=== PATIENT | male | born 1945 | race Caucasian/White ===

== ENCOUNTER → 2020-02-10 06:16 | Outpatient (CLI) | payer MEDICARE, OTHER, SELFPAY ==
--- NOTE | 2020-02-10 06:36 | MRI_ITS ---
STUDY: MRI RIGHT ELBOW REASON FOR EXAM: Aching in right arm since 02/02/2020, attention distal biceps tendon. TECHNIQUE: Standardized fat and water weighted pulse sequences were obtained in all 3 orthogonal planes. COMPARISON: None. FINDINGS: Normal radio-capitellum articulation. Normal radial collateral ligamentous complex. There is an undersurface partial tear of the common extensor tendon (inversion recovery coronal images 10-12) and peritendinitis of the common extensor tendon (inversion recovery coronal image 12). Normal ulnotrochlear articulation. Normal ulnar collateral ligamentous complex. There is a low-grade undersurface partial tear of the common flexor tendon (inversion recovery coronal image 15). The cubital tunnel is normal, with a normal ulnar nerve. There is mild tendinosis of the distal biceps tendon and a low-grade partial tear of the distal biceps tendon near the radial tuberosity insertion (inversion recovery coronal image 8; T2 axial image 4). Normal lacertus fibrosis. Normal brachialis musculotendinous insertion. Normal triceps tendon and teno-osseous insertion. Normal olecranon process. The visualized distal humerus, proximal radius, and ulna are normal. The visualized muscles of the distal arm and proximal forearm are normal. There is mild edema in the ulnar posterior subcutis adipose space. MRI/Upper Ext Joint Only(Routine) IMPRESSION: Low-grade partial tear and mild tendinosis of the distal biceps tendon. Undersurface partial tear and peritendinitis of the common extensor tendon. Low-grade undersurface partial tear of the common flexor tendon. Electronically Signed: Len Beckett MD at 7:48 EDT Tel , Service support ,
== END ==
PROVIDERS: PCP Physician Assistant; Referring Provider Physician Assistant; Visit Provider Physician Assistant
DX: S46.111A Strain of muscle, fascia and tendon of long head of biceps, right arm, initial encounter (principal)
CPT/HCPCS: 73221

== ENCOUNTER 2020-03-12 10:30 | Outpatient (RCR) | payer MEDICARE, OTHER, SELFPAY ==
--- NOTE | 2020-02-19 09:58 | HP.PTEVAL_ITS ---
Patient's Visit Information MARCI WONG is a 74 year old M referred to Physical Therapy by Yosi Alaniz PA-C with a diagnosis of long head biceps strain of R arm. Date of Evaluation: 02/19/20 Physical Therapist: Pepito Espinoza DPT - Visit Plan Frequency: 2x /Week Duration: 4-6 Weeks Plan: Start with DFM to biceps muscle belly R side, elbow extension stretcing (as tolerated, not forceful). RTC stability exercses. Add in slow progression of biceps loading as tolerated. Focus on increasing reps prior to heavy loads. Have patient slowly progressing swing golf club both from light chipping to in a few weeks full swinging as tolerated. Do not progress too fast if painful. - Subjective Pt. is here today for his initial evaluation with diagnosis of long head biceps strain of R arm. Pt. reports hurting his arm ~2-3 weeks ago while working on his deck and picking up some decking materials. Pt. reports no initial pain and was able to go golfing later that date, but did have some pain later that night. the neck day he had a large amout of bruising of distal biceps region into his olecranon fossa region. Pt. saw his doctor who told him he had a possible distal biceps tear, but minor. Pt. is an avid golfer ~4-5 days per week. He has held off since his initial injury, but has started putting and ligth chipping recently. pt. reports overall now his pain is minmal, but is hesitent to trial more aggressive activities. Increases symptoms: not much any more, does get sore cramps in the evening. Decreases symptoms: ice and rest. No swelling, no bruising noted. Pt. is hopeful to reduce symptoms in order to get back to all golfing without increase in symptoms. - Pain R distal biceps pain Pain Intensity (Out of 10): 1 Pain Intensity Range: 0, 3 - Objective POSTURE: Pt. has FH posture with rounded shoulders and protracted scapulea bilaterally. Normal distal UE posture. PALPATION: Pt. has no bruising, but does have increased tissue mass of his R bicep muscle belly. Pt. has some mild tenderness at biceps muscle belly and distal biceps tendon. NEURO: normal sensation and normal DTR of BUEs. ROM: RUE- wrist full ROM, elbow- full ROM including full sup/pro (mild increase insymptoms with over pressure into sup); shoulder: flexion 175deg NE, abd 170deg NE, functional ER C6 NE, functional IR L1 NE. MMT: shoulder- 5-/5 throughout NE; elbow- ext 5/5 NE, flexion 4/5 mild incrase NW; shoulder- flexion 4+/5, abd 4+/5, ER 4/5, IR 5/5. - Special Tests R Shoulder Empty Can - SS: Negative R Shoulder Biceps Load Test - Labrum: Negative R Shoulder Speeds Test - Labrum/Biceps: Negative R Elbow Valgus Stress Test - MCL Instability: Negative R Elbow Varus Stress Stest - MCL Instability: Negative R Elbow Biceps Squeeze - Rupture Biceps: Negative - Goals Goal 1:: LTG: Pt. to be I with HEP. Goal Time Frame: 4-6 Weeks Goal 2:: STG: pt. to sleep throughout the night without increase in symptoms. Goal Time Frame: 2 Weeks Goal 3:: STG: Pt. to maintain full R elbow extension. Goal Time Frame: 2-4 Weeks Goal 4:: LTG: Pt. to have increased R shoulder ER and biceps strength by 1/2 grade without increase in symptoms. Goal Time Frame: 4-6 Weeks Goal 5:: LTG: Pt. to resume all golfing without increase in symptoms. Goal Time Frame: 4-6 Weeks - Rehabilitation Potential Physical Therapy Diagnosis: Pt. presents with signs and symptoms consistent with biceps injury, distally. Pt. has Rehabilitation Potential: Excellent - Anticipated Interventions Patient/Client Instruction: Educate patient on: Condition, Plan of Care, Risk Factors, Benefits of Fitness Program For the Purpose of:: To facilitate caregiver knowledge, To improve self management, To prevent re-injury, To improve ability to perform tasks related to life management, To improve tolerance to ADL's Therapeutic Exercise to Include: Strength training, Power training, Endurance training, Postural training, Flexibilty training, Active ROM, Scapular Strength/Stabilization For the Purpose of:: To decrease pain, To decrease swelling/inflammation, To increase ROM, To improve nutrient delivery to tissue, To increase oxygenation perfusion, To improve muscle performance and motor function, To improve ability to perform ADL's, To improve health of tissue, To decrease soft tissue restriction, To increase flexibility/ROM Manual Therapy Techniques to Include: Soft tissue mobilization For the Purpose of:: To decrease pain, To decrease swelling/inflammation, To increase ROM Thank you for the opportunity to evaluate your patient. For Medicare and Medicare HMO plans, please review the plan of care and approve it. It will need to be FAXED BACK to us at [phone] for Medicare purposes. For Medicare only, by signing this I certify the plan of care. Please let me know if there are questions or concerns regarding this plan of care. Physician Signature: Date:
--- NOTE | 2020-03-15 11:31 | HP.PTREVAL ---
Yosi Alaniz PA-C, It has been my pleasure to treat MARCI WONG over the last 7 visits for long head biceps strain of R arm. Please see the progress note below for an update on the physical therapy plan of care! Subjective: Pt. reports overall doing well. He is back to playing golf but hitting at 75% of his swing. Pt. reports no pain. Pt. reports beign 90% better overall. HEP compliant. Objective/Function: Pt. has good ROM of both R shoulder and elbow. No pain with testing. Pt. does have marked weakness in his ER of his shoulder without marked pain. Pt. has good biceps strengthen. He is back to playing golf and is slowly increasing to full swing, ~75% of swing velocity currently (self reported). Pt. has not had any increased pain with this so far. Plan Plan: Pt. to b continue on own for the next few weeks and and follow up with physician in a few weeks. Pt. to follow up with PT if needed. If I do no hear from him in the next few weeks I will DC from PT at this point in time. Goals Goal 1:: LTG: Pt. to be I with HEP. Goal Time Frame: 4-6 Weeks Goal Progress: Goal Met Goal 2:: STG: pt. to sleep throughout the night without increase in symptoms. Goal Time Frame: 2 Weeks Goal Progress: Goal Met Goal 3:: STG: Pt. to maintain full R elbow extension. Goal Time Frame: 2-4 Weeks Goal Progress: Goal Met Goal 4:: LTG: Pt. to have increased R shoulder ER and biceps strength by 1/2 grade without increase in symptoms. Goal Time Frame: 4-6 Weeks Goal Progress: Goal Met Goal 5:: LTG: Pt. to resume all golfing without increase in symptoms. Goal Time Frame: 4-6 Weeks Goal Progress: Goal Met Anticipated Interventions Patient/Client Instruction: Educate patient on: Condition, Plan of Care, Risk Factors, Benefits of Fitness Program For the Purpose of:: To facilitate caregiver knowledge, To improve self management, To prevent re-injury, To improve ability to perform tasks related to life management, To improve tolerance to ADL's Therapeutic Exercise to Include: Strength training, Power training, Endurance training, Postural training, Flexibilty training, Active ROM, Scapular Strength/Stabilization For the Purpose of:: To decrease pain, To decrease swelling/inflammation, To increase ROM, To improve nutrient delivery to tissue, To increase oxygenation perfusion, To improve muscle performance and motor function, To improve ability to perform ADL's, To improve health of tissue, To decrease soft tissue restriction, To increase flexibility/ROM Manual Therapy Techniques to Include: Soft tissue mobilization For the Purpose of:: To decrease pain, To decrease swelling/inflammation, To increase ROM Please do not hesitate to contact me at [phone] by phone or if you have questions or concerns regarding this new plan of care! Sincerely, NATHANAEL AguayoT
== END 2020-03-12 19:00 | disposition home or self-care (01) ==
LOC: PT 10:30
PROVIDERS: PCP Physician Assistant; Visit Provider Physician Assistant
DX: S46.111D Strain of muscle, fascia and tendon of long head of biceps, right arm, subsequent encounter (principal)
CPT/HCPCS: 97110; 97161; 97164

== ENCOUNTER → 2021-12-22 | Outpatient (CLI) | payer MEDICARE, OTHER, SELFPAY | END | disposition home or self-care (01) | PROVIDERS: PCP Physician Assistant; Visit Provider Podiatrist | DX: L97.512 Non-pressure chronic ulcer of other part of right foot with fat layer exposed (principal) | CPT/HCPCS: 87070; 87075; 87077; 87186; 87205 ==

== ENCOUNTER → 2022-03-13 | Outpatient (CLI) | payer MEDICARE, OTHER, SELFPAY ==
--- NOTE | 2022-03-13 09:45 | ART_ITS ---
Reason For Study: PVD Procedure A bilateral lower extremity continuous wave Doppler with analog waveform analysis,segmental pressures,and ankle brachial indexes without exercise. Left Segmental Pressures Left brachial= 123mmHg. Left posterior tibial artery = >254mmHg. Left dorsalis pedis artery = >254mmHg. Left digit = 104 mmHg. Right Segmental Pressures Right brachial= 121mmHg. Right posterior tibial artery = >254mmHg. Right dorsalis pedis artery = >254mmHg. Right digit = 108 mmHg. Indices The right ankle brachial index by the posterior tibial artery is NC. The right ankle brachial index by the dorsalis pedis is NC. The right digital-brachial index is 0.88. The left ankle brachial index by the posterior tibial artery is NC. The left ankle brachial index by the dorsalis pedis is NC. The left digital-brachial index is 0.85. VL/Lower Ext Art Exam w/o Exercis Interpretation Summary Triphasic Doppler waveforms are noted at ankle level bilaterally. Pulse-volume recordings appear diminished at digital level on the left, but satisfactory at all other levels b ilaterally. Resting ankle-brachial indices could not be determined on either side due to the non-co mpressibility of the vasculature at ankle level bilaterally. Digital-brachial indices are normal valdemar aterally. There is evidence of arterial calcification at ankle level bilaterally. There i s no evidence of significant arterial occlusive disease in the lower extremities bilaterally. Ordering Physician: Aidan Bishop Referring Physician: Dc Herrera Performed By: Mercy Garcia RDCS/RVT
== END | disposition home or self-care (01) ==
LOC: CVS 09:39
PROVIDERS: PCP Family Medicine; Referring Provider Podiatrist; Visit Provider Podiatrist
DX: I73.9 Peripheral vascular disease, unspecified (principal)
CPT/HCPCS: 93923

== ENCOUNTER → 2022-03-28 | Outpatient (CLI) | payer MEDICARE, OTHER, SELFPAY ==
[2022-03-28 17:33] LABS: Absolute Lymphocyte Count 1.78 X10^3/uL (0.83-4.51); Absolute Neutrophil Count 4.5 X10^3/uL (2.0-7.7); Basophil# 0.05 X10^3/uL; Basophil% 0.7 % (0-1); Eosinophil# 0.12 X10^3/uL; Eosinophils% 1.7 % (0-5); Hematocrit 37.6 % (40-54); Hemoglobin 12.9 g/dL (13.0-16.5); Lymphocyte # 1.78 X10^3/ul (0.83-4.51); Lymphocyte % 25.2 % (19-41); Mean Corp Hgb Conc 34.3 g/dL (32-36); Mean Corpuscular Hgb 35.5 pg (27.0-32.0); Mean Corpuscular Volume 103.6 fL (80-94); Mean Platelet Vol. 10.2 fl (6.2-12.0); Monocyte# 0.64 X10^3/uL; Monocyte% 9.1 % (0-10); NRBC Flagged by Analyzer 0 % (0-5); Neutrophil # 4.45 X10^3/uL (2.7-7.7); Platelet Count 258 K/mm3 (150-450); RBC Distribution Width CV 12.7 % (11.6-14.6); RBC Distribution Width SD 47.7 fl (35.1-43.9); Red Blood Count 3.63 M/mm3 (4.6-6.2); White Blood Count 7.1 K/mm3 (4.4-11.0)
[2022-03-28 17:52] LABS: ALB/GLOB Ratio 1.1 RATIO (0.9-2.4); AST(SGOT) 27 U/L (15-37); Alanine Aminotransfer ALT/SGPT 25 U/L (16-61); Albumin, Serum 3.7 g/dL (3.2-5.0); Alkaline Phosphatase 43 U/L (45-117); Anion Gap 8 (5-15); BUN 20 mg/dL (7-18); BUN/Creat Ratio 18.2 RATIO (10-20); Calcium,Total 9.6 mg/dL (8.5-10.1); Chloride 102 mmol/L (98-107); EST Glomerular Filtration Rate 69 mL/min (>60); Est Glom Filt Rate - Afr Amer 84 mL/min (>60); Globulin 3.3 g/dL (2.2-4.2); Glucose 105 mg/dL (74-106); Potassium 3.9 mmol/L (3.5-5.1); Sodium Level 137 mmol/L (136-145)
== END | disposition home or self-care (01) ==
LOC: MFPLAB 14:26
PROVIDERS: PCP Family Medicine; Referring Provider Family Medicine; Visit Provider Family Medicine
DX: Z01.818 Encounter for other preprocedural examination (principal)
CPT/HCPCS: 36415; 80053; 85025

== ENCOUNTER 2022-04-14 05:50 | Day surgery (SDC) | payer MEDICARE, OTHER, SELFPAY ==
[2022-04-14] VITALS (7 sets, daily range): BP systolic 130–166; BP diastolic 82–98; PULSE 51–79; RESP 16; TEMP 36.3–37.1; O2SAT 94–100; BMI 24.7
--- NOTE | 2022-04-14 | BONBX_PTH ---
PATIENT: MARCI WONG LOC: [facility] – [place] U#:[id number] AGE/SX: 76/M ROOM: RE04/14/[address]: Dr. Aidan Bishop DPM : [id number] BED: DIS: 04/14/2022 SPEC #: [id number] RECD: 04/14/22 13:57 STATUS: SARATH RENadja #: [id number] LUIS ANTONIO: 04/14/22 00:[address]: Aidan Bishop DEPT: SURGICAL PATHOLOGY RECD BY: Ezequiel Nelson ENTERED: 04/17/22 10:03 SP TYPE: Bone OTHR DR: Dr. Kenzie Alexander MD Tissues: Bone of foot, NOS Procedures: Decalcification bone/plaque Surgery Specimen Level III HEADER OPERATION: MPJ fusion with hammertoe repair PRE-OP DIAGNOSIS: Hallux valgus, hallux rigidus, hammertoe TISSUE SUBMITTED: Second digit proximal phalangeal head, right foot MICROSCOPIC DIAGNOSIS Second digit proximal phalangeal head, right foot: A piece of bone with degenerative and reactive changes, clinically hammertoe. MALORIE:keyanna 04/19/2022 MICROSCOPIC DESCRIPTION Slides are reviewed. GROSS DESCRIPTION Received in fixative is one container labeled with the patient's name and designated second digit proximal phalangeal head, right foot. The specimen consists of a piece of bone measuring 1 x 0.7 x 0.7 cm. The entire specimen is submitted in one cassette after decalcification. / MALORIE:keyanna 04/17/2022 TC:5 CPT: 32865, 46171
[2022-04-14] MEDS: Lactated Ringers 1,000 ML 15 ML IV (06:31)
--- NOTE | 2022-04-14 07:30 | RAD_ITS ---
HISTORY: 1st MPJ Fusion, hammer toe repair. TECHNIQUE: 7 spot images. COMPARISON: None. FINDINGS: BONES : Instrument at the first metatarsophalangeal joint. Fusion hardware noted on subsequent images. K wire traversing the second metatarsophalangeal and interphalangeal joints. FLUOROSCOPY TIME: 57 seconds. RADIATION DOSE: 0.44 mGy. RAD/Toe(s) Min 2 Views IMPRESSION: Fluoroscopic guidance for right foot ORIF. Please refer to procedure note. Electronically Signed: Latasha Patiño MD at 15:23 EDT ,
[2022-04-14] MEDS: Cefazolin 2 GM in 0.9% Normal Saline 100 ML IV (07:36)
[2022-04-14] MEDS: Bacitracin 500 UNITS/GM PACKET (09:59)
--- NOTE | 2022-04-14 10:16 | PCM.OPRPT ---
Problems Associated Problem List Diagnoses (1) Hallux rigidus of right foot: (2) Hammertoe of right foot: Report of Operation Date of Procedure: 04/14/22 Pre-Operative Diagnosis: 1) right foot hallux rigidus 2) right foot second digit hammertoe Post-Operative Diagnosis: Same Surgery/Procedure Performed:: 1) right first metatarsal phalangeal joint arthrodesis 2) right second digit hammertoe repair via PIPJ arthroplasty with flexor tenotomy Description of Surgical Findings:: Great reduction of hallux valgus and hallux rigidus deformity to the right foot post surgical correction with dorsal plating and first metatarsal phalangeal joint fusion as well as rectus alignment of the right second digit and ball frontal sagittal and coronal and transverse planes. Surgeon: Aidan Bishop manager eligibility: None (milad LINDA pgyII) Type of Anesthesia: MAC Special Medications: 30 cc quarter percent Marcaine plain Specimen's removed: Proximal phalangeal head right second digit Estimated Blood Loss (mL): 50 cc Description of Procedure: Patient has chronic hallux valgus deformity with hallux rigidus formation to the first metatarsal phalangeal joint. This is been a chronic issue for the patient and patient has attempted multiple shoe gear changes with inserts. Patient has failed this over his lifetime. He noticed a new hammertoe contracture that which is developed over the past couple of years. Recently he has developed a wound to his distal interphalangeal joint of the second toe secondary from rubbing of this lateral aspect of his hallux up against that second digit with both being rigid contractures this would not heal adequately. Due to this chronic wound at this point as well as pain full digital deformities patient wished to proceed with operative management. Patient brought back the operating placed comfortably in the supine position. Patient due to under MAC anesthesia. Right lower extremity was bumped with a hip bump. Well-padded right ankle tourniquet applied. Right lower extremity was scrubbed prepped and draped using typical aseptic manner. Preoperatively 20 cc were used to perform a Young block and a right second digit block additional 10 cc was performed at the end of the case for a total of 30 cc of quarter percent Marcaine plain. Once cleared by anesthesia a dorsal medial incision was drawn just dorsal to the first metatarsal phalangeal joint. This incision was made through the level of epidermis dermis into subcutaneous tissue blunt dissection was taken to the level of deep fascia and capsule. Any bleeders were identified cauterized at this time. All other important neurovascular structures were protected with blunt retraction. Dorsal capsulotomy was performed in a linear fashion just medial to the extensor hallucis longus tendon. The capsule was dissected off of the first metatarsal head and proximal phalangeal base exposing the first metatarsal phalangeal joint both dorsally medially and laterally as well as plantar medially. This allowed adequate exposure of the first metatarsal head and proximal phalangeal base. There is noted that there is greater than 50% articular cartilage loss with dorsal osteophyte formation along the dorsal medial aspect of the first metatarsal head and proximal phalangeal base. There is also noted to be a bone cyst along the dorsal aspect of the first metatarsal head which would require DBM application to fill the deficit. n the joint was prepped using reamers using standard technique per commercial loan reviewer's guidelines once all denuded cartilage was removed the site was flushed with copious amounts normal sterile saline any additional osteophytes were removed using a sagittal saw. Subcu chondral drilling was performed with a 2 oh drill bit to the first metatarsal head and proximal phalangeal base. The digital deformity was reduced and with regards to frontal sagittal and coronal and transverse planes. With pinned in this position from a distal medial to proximal lateral aspect with a percutaneous pin across the first metatarsal phalangeal joint a dorsal plate was then applied and confirmed using fluoroscopic imaging confirming digital reduction as well as adequate plate placement this plate was locked down distally with 3 locking screws using manufactures guidelines and next BB tack was maintained to the proximal aspect of the plate which the compression mechanism was used for this Arthrex max force compression plate a drill hole was placed and the compression mechanism was inserted and used until 2 finger tightness and adequate compression was noted across first metatarsophalangeal joint was then retained in this reduced state with a threaded BB tack. Fluoroscopically and clinically it was noted to be reduced and the plate was in good position. A cortical screw was placed in the central hole. Next 2 locking screws were placed in the more distal and more proximal holes just proximal to the first marginal first metatarsophalangeal joint using manufactures guidelines. The site was flushed with copious amounts of normal sterile saline and capsular closure was performed with 4-0 Vicryl in a running interlocking stitch and then subcutaneous closure with 4 oh simple interrupted technique. Skin closure performed with running intradermal subcuticular stitch. Next attention was taken to the second digit where a linear incision was made just dorsal to the PIPJ and MPJ is made through the epidermis dermis into subcutaneous tissue with a 15 blade all bleeders identified neurovascular structures were bluntly infected. PIPJ was identified and transverse capsulotomy was performed in the medial and lateral aspects of the proximal phalangeal head were released and the extensor tendon was dissected off the proximal phalanx down to the level of the metatarsal phalangeal joint the metatarsal phalangeal joint was released dorsally and that noted improvement in sagittal contracture. The proximal phalangeal head was then excised using bone cutters and sent to pathology for further examination. At this time there is still some contracture that was predominantly secondary to the pole of the flexor tendons flexor tendons were then tendon tenotomized using Littler scissors. Adequate reduction was noted at this time and went through retrograde pinning a percutaneous pin was placed across the entire digit into the proximal phalangeal joint with the toe reduced with regards to the frontal sagittal and transverse planes. This confirmed intraoperatively by visualization as well as fluoroscopic imaging. Site was flushed with copious manuel normal sterile saline closed with subcutaneous closure to repair the extensor tendon back with a interlocking 4-0 Vicryl stitch and then subcutaneous closure was performed with simple interrupted buried technique stitch. Running intradermal subcuticular closure was performed with 4-0 Monocryl tourniquet was let down prior to incisional closure on the side. Tourniquet time was noted to be less than 90 minutes. Incision sites were then dressed with Steri-Strips bacitracin Adaptic 4 x 4's Kerlix and a well-padded posterior splint. Patient tolerated procedure and anesthesia well in apparent satisfactory condition to be transferred to PACU with vital signs and vascular status intact all digits for further monitoring.. Patient will be discharged home with crutches. Patient will follow up in 1 week. No complication Proximal phalangeal head right second digit only pathologic specimen
== END 2022-04-14 12:10 | disposition home or self-care (01) ==
LOC: SDC 05:51 → AC 05:52
PROVIDERS: PCP Family Medicine; Referring Provider Podiatrist; Visit Provider Podiatrist
PROC: (CPT 28750; principal; 2022-04-14 07:15)
DX: M20.41 Other hammer toe(s) (acquired), right foot (principal); M20.10 Hallux valgus (acquired), unspecified foot; Z79.899 Other long term (current) drug therapy; I10 Essential (primary) hypertension; M10.9 Gout, unspecified
CPT/HCPCS: 28750; 01480; 28285; 73660; 76000; 88304; 88311; C1713; J7120; J2405

== ENCOUNTER → 2022-06-16 | Outpatient (CLI) | payer MEDICARE, OTHER, SELFPAY ==
--- NOTE | 2022-06-16 16:19 | CT_ITS ---
INDICATION: R FOOT PAIN IN TOES EXAMINATION: CT BONE - CT Lower Extremity W/O Contrast Injection TECHNIQUE: Helically acquired images were obtained of the right foot. 2-D reformats were performed by the technologist. A radiation dose optimization technique was used for this scan. IV Contrast dosage and agent: None. COMPARISON: None. FINDINGS: SOFT TISSUES: Soft tissue edema medial to the first MTP joint. No gas formations.. No radiopaque foreign body. Vascular calcifications present. Fixation hardware at the dorsum of the first MTP joint. Hardware intact and appears well-seated. BONES/JOINTS: No acute fracture. Degenerative changes of the first MTP joint. Remaining joint spaces. No sclerotic or destructive changes. CT/Extremity Lower without Contra IMPRESSION: Surgical changes from surgical fusion with hardware first MTP joint. No acute or destructive bony abnormality.. Electronically Signed: Ben Varela MD at 16:51 EST ,
== END | disposition home or self-care (01) ==
LOC: CT 16:18
PROVIDERS: PCP Family Medicine; Referring Provider Podiatrist; Visit Provider Podiatrist
DX: M79.674 Pain in right toe(s) (principal)
CPT/HCPCS: 73700

== ENCOUNTER → 2022-08-03 | Outpatient (CLI) | payer MEDICARE, OTHER, SELFPAY ==
--- NOTE | 2022-08-03 08:14 | CT_ITS ---
EXAM: CT RIGHT LOWER EXTREMITY WITHOUT INTRAVENOUS CONTRAST CLINICAL INDICATION: VARUS DEFORMITY/PRE OP TECHNIQUE: Helically acquired images were obtained of the right lower extremity without intravenous contrast. 2-D reformats were performed by the technologist. CTDIvol = ( 18.76 ) mGy, DLP = ( 1168.50 ) mGycm This CT exam was performed using one or more of the following dose reduction techniques: automated exposure control, adjustment of the mA and/or kV according to patient size, and/or use of iterative reconstruction technique. This report was created using [employer] report CPM [employer] technology. COMPARISON: None. 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 Focal insufficiency fracture suspected at the middle weightbearing portion of the medial femoral condyle measuring 1.1 cm in medial collateral dimension with minimal cortical depression. Evidence of old injury involving the medial malleolus. Nonfused os trigonum. Soft tissues: Small focus gas at the lateral femorotibial compartment. Prominent prepatellar soft tissue edema and fluid, nonorganized. Peripheral vascular calcifications at the level of the ankle/distal lower extremity. CT/Extremity Lower without Contra IMPRESSION: 1. Preoperative planning study. 2. Focal insufficiency fracture suspected at the middle weightbearing portion of the medial femoral condyle measuring 1.1 cm in medial collateral dimension with minimal cortical depression. 3. 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 Electronically Signed: David Corona MD at 22:26 EST ,
--- NOTE | 2022-08-03 08:40 | EKG12_ITS ---
Test Reason : PRE OP Blood Pressure : / mmHG Vent. Rate : 089 BPM Atrial Rate : 089 BPM P-R Int : 156 ms QRS Dur : 088 ms QT Int : 366 ms P-R-T Axes : 043 -23 053 degrees QTc Int : 445 ms Normal sinus rhythm Normal ECG Confirmed by CHRISTOPHER PRIETO, JAIDA ([id number]), graphic editor GAETANO MITCHELL ([id number]) on 08/04/2022 9:01:56 AM Referred By: Jerry Easton Confirmed By:THONY WHITE MD
[2022-08-03 10:03] LABS: Basophil# 0.05 X10^3/uL; Basophil% 0.6 % (0-1); Eosinophil# 0.12 X10^3/uL; Eosinophils% 1.5 % (0-5); Hematocrit 38.5 % (40-54); Hemoglobin 13.1 g/dL (13.0-16.5); Lymphocyte % 18.2 % (19-41); Mean Corpuscular Hgb 34.6 pg (27.0-32.0); Mean Corpuscular Volume 101.6 fL (80-94); Mean Platelet Vol. 9.7 fl (6.2-12.0); Monocyte# 0.56 X10^3/uL; Monocyte% 6.8 % (0-10); NRBC Flagged by Analyzer 0 % (0-5); Neutrophil # 5.99 X10^3/uL (2.7-7.7); Neutrophil % 72.7 % (47-70); Platelet Count 247 K/mm3 (150-450); RBC Distribution Width CV 13.6 % (11.6-14.6); RBC Distribution Width SD 50.4 fl (35.1-43.9); Red Blood Count 3.79 M/mm3 (4.6-6.2); White Blood Count 8.2 K/mm3 (4.4-11.0)
[2022-08-03 10:39] LABS: Albumin, Serum 3.9 g/dL (3.2-5.0); Anion Gap 10 (5-15); BUN 24 mg/dL (7-18); BUN/Creat Ratio 23.3 RATIO (10-20); Calcium,Total 9.6 mg/dL (8.5-10.1); Chloride 103 mmol/L (98-107); Creatinine, Serum 1.03 mg/dL (0.70-1.30); EST Glomerular Filtration Rate 75 mL/min (>60); Est Glom Filt Rate - Afr Amer 90 mL/min (>60); Glucose 114 mg/dL (74-106); Potassium 4.4 mmol/L (3.5-5.1); Sodium Level 140 mmol/L (136-145)
[2022-08-03 10:42] LABS: Hemoglobin A1c 5.1 % (3.8-5.6)
== END | disposition home or self-care (01) ==
PROVIDERS: PCP Family Medicine; Referring Provider Physician Assistant Surgical; Visit Provider Physician Assistant Surgical
DX: Z01.818 Encounter for other preprocedural examination (principal); M21.161 Varus deformity, not elsewhere classified, right knee; Z79.899 Other long term (current) drug therapy
CPT/HCPCS: 36415; 73700; 80048; 82040; 83036; 85025; 93005

== ENCOUNTER 2022-09-18 10:30 | Outpatient (RCR) | payer MEDICARE, OTHER, SELFPAY ==
--- NOTE | 2022-08-21 12:48 | HP.PTEVAL_ITS ---
Patient's Visit Information MARCI WONG is a 76 year old M referred to Physical Therapy by Lobo Easton PA-C with a diagnosis of R partial knee arthroplasty. Date of Evaluation: 08/21/22 Physical Therapist: Pepito Espinoza DPT - Visit Plan Frequency: 3x /Week Duration: 6 Weeks Plan: Start with ROM of R knee, progressing to strengthening. Add in some gait instruction. May use ice and/or vaso for edema. Pt. wants to eventually progress back to gym exercises.*Be aware patient had a bunionectomy and wanted to avoid raising up on toes.* - Subjective Pt. is here today for his initial evaluation with R partial knee arthroplasty. D OS: 08/18/22. Pt. arrives without AD. Pt. reports overall minimal pain, but is taking his sol medication. Pt. denies calf pain, no NT, no visual changes and no HAs. Pt. has been doing his exercises as prescribed, but had to hold of on Sunday due to having some increased pain Sat night. Pt. has been walking at home with good tolerance. Pt. did have a bunionectomy late last year. Pt. is overall pleased with his tolerance with his knee thus far. Pt. is sleeping okay. He is back to taking his pain meds, he held off on Sunday. Pt. reports no drainage, knee is still bandaged. Pt. has minimal heat and minmal swelling noted. 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 He reports golfing x5 days per week in spring and summer. - Pain R medial knee Pain Intensity (Out of 10): 2 Pain Intensity Range: 0, 5 - Objective POSTURE: Pt. has decent posture in stance. Slight wt. shift to L side. Lacks TKE on R LE in stance. PALPATION: Pt. has tenderness along knee, but no major issues noted. Pt. has edema, but minimally, no pitting edema noted. NEURO: normal sensation to light and sharp touch. Pt. has normal Achilles DTR bilaterally. Pt. is able to rise on heels, but toes is slightly painful due to R bunion surgery. ROM: R knee: 0-3-110deg. PROM: 0-0-110deg. Slight tightness in B HS. MMT: RLE: ankle 5/5 throughout. Knee: ext 5#, flexion 4.1#. LLE: ankle: 5/5 throughout; knee: flexion 25.5, flexion 21.3#. GAIT: Pt. has good ambulati on without AD. He does tend to walk pretty flat footed with decreased heel strike during initial contact. Pt. also has slight decrease in knee flexion during swing. STAIRS: step to pattern noted with 2 HR to complete. - Balance/Special Test Scores Lower Extremity Functional Score: 40 TUG Test Time Seconds: 13.9 WOMAC Total Score: 68 WOMAC Percentatge: 29.1700 - Goals Goal 1:: LTG: Pt. to be I with HEP and with gym exercises. Goal Time Frame: 4-6 Weeks Goal 2:: STG: Pt. sleep throughout the night without increase in symptoms. Goal Time Frame: 2-4 Weeks Goal 3:: STG: Pt. to have increased R knee ROM to 0-0-120deg without increase in symptoms. Goal Time Frame: 2-4 Weeks Goal 4:: LTG: Pt. to have symmetrical strength between BLEs without increase in symptoms. Goal Time Frame: 4-6 Weeks Goal 5:: LTG: Pt. to be able to negotiate 1 flight of stairs with 1 HR with reciprocal pattern. Goal Time Frame: 4-6 Weeks Goal 6:: LTG: Pt. to ambulate 1000' without AD with normal gait pattern without increase in symptoms. Goal Time Frame: 4-6 Weeks - Rehabilitation Potential Physical Therapy Diagnosis: Pt. has signs and symptoms consistent with R partial knee arthroplasty. Pt. has marked hypomobility, weakness, increased edema, difficulty walking and increased pain. Pt. would benefit from PT to address the above limitations progressing back to all recreationally and household activities without limitations. Rehabilitation Potential: Excellent - Anticipated Interventions Patient/Client Instruction: Educate patient on: Condition, Plan of Care, Risk Factors, Benefits of Fitness Program For the Purpose of:: To improve decision making, To facilitate caregiver knowledge, To improve self management, To prevent re-injury, To improve ability to perform tasks related to life management, To improve tolerance to ADL's Therapeutic Exercise to Include: Strength training, Power training, Endurance training, Balance training, Postural training, Flexibilty training, Gait and locomotor training, Passive ROM, Active ROM For the Purpose of:: To decrease pain, To decrease swelling/inflammation, To increase ROM, To improve nutrient delivery to tissue, To increase oxygenation perfusion, To improve muscle performance and motor function, To improve ability to perform ADL's, To increase tolerance to activity/condition/position, To improve health of tissue, To decrease soft tissue restriction, To increase flexibility/ROM, To improve endurance, To improve balance Manual Therapy Techniques to Include: Manual lymph drainage, Mobilization, Passive ROM For the Purpose of:: To decrease pain, To decrease swelling/inflammation, To increase ROM, To improve nutrient delivery to tissue Vasopneumatic device: Yes For the Purpose of:: To decrease pain, To decrease swelling/inflammation, To increase ROM Thank you for the opportunity to evaluate your patient. For Medicare and Medicare HMO plans, please review the plan of care and approve it. It will need to be FAXED BACK to us at [phone] for Medicare purposes. For Medicare only, by signing this I certify the plan of care. Please let me know if there are questions or concerns regarding this plan of care. Physician Signature: Date:
--- NOTE | 2022-08-30 13:26 | HP.PTREVAL ---
Lobo Easton PA-C, It has been my pleasure to treat MARCI WONG over the last 5 visits for R partial knee arthroplasty. Please see the progress note below for an update on the physical therapy plan of care! Subjective: Pt. reports no pain today. Pt. reports overall doing very well. He is walking without AD, and being HEP compliant without issues. Objective/Function: ROM: 0-0-127deg. MMT: RLE: ext 15#, flexion 21#. LLE: knee: ext 35#, flexion 25#. Straight leg raise: Pt. is able to complete with good tolerance, but does have a tendency to lose his TKE to ~10deg lag towards end of 10 reps. STAIRS: Pt. did very well with stairs and 1 HR this date. gait: Pt. ambulates well, I do give him occasional VCing to increase TKE during R stance phase. Incision looked really good today. HE does have some joint effusion, but is progressively getting better. Pt. is progressing as expected. Plan Plan: Start with ROM of R knee, progressing to strengthening. Add in some gait instruction. May use ice and/or vaso for edema. Pt. wants to eventually progress back to gym exercises.*Be aware patient had a bunionectomy and wanted to avoid raising up on toes.* Balance/Gait/Functional tests - Balance/Special Test Scores Lower Extremity Functional Score: 40 TUG Test Time Seconds: 13.9 Tug Test: <20 sec.=mostly independent WOMAC Total Score: 68 WOMAC Percentage: 29.1700 Goals Goal 1:: LTG: Pt. to be I with HEP and with gym exercises. Goal Time Frame: 4-6 Weeks Goal Progress: Progressing Goal 2:: STG: Pt. sleep throughout the night without increase in symptoms. Goal Time Frame: 2-4 Weeks Goal Progress: Progressing Goal 3:: STG: Pt. to have increased R knee ROM to 0-0-120deg without increase in symptoms. Goal Time Frame: 2-4 Weeks Goal Progress: Goal Met Goal 4:: LTG: Pt. to have symmetrical strength between BLEs without increase in symptoms. Goal Time Frame: 4-6 Weeks Goal Progress: Progressing Goal 5:: LTG: Pt. to be able to negotiate 1 flight of stairs with 1 HR with reciprocal pattern. Goal Time Frame: 4-6 Weeks Goal Progress: Goal Met Goal 6:: LTG: Pt. to ambulate 1000' without AD with normal gait pattern without increase in symptoms. Goal Time Frame: 4-6 Weeks Goal Progress: Progressing Anticipated Interventions Patient/Client Instruction: Educate patient on: Condition, Plan of Care, Risk Factors, Benefits of Fitness Program For the Purpose of:: To improve decision making, To facilitate caregiver knowledge, To improve self management, To prevent re-injury, To improve ability to perform tasks related to life management, To improve tolerance to ADL's Therapeutic Exercise to Include: Strength training, Power training, Endurance training, Balance training, Postural training, Flexibilty training, Gait and locomotor training, Passive ROM, Active ROM For the Purpose of:: To decrease pain, To decrease swelling/inflammation, To increase ROM, To improve nutrient delivery to tissue, To increase oxygenation perfusion, To improve muscle performance and motor function, To improve ability to perform ADL's, To increase tolerance to activity/condition/position, To improve health of tissue, To decrease soft tissue restriction, To increase flexibility/ROM, To improve endurance, To improve balance Manual Therapy Techniques to Include: Manual lymph drainage, Mobilization, Passive ROM For the Purpose of:: To decrease pain, To decrease swelling/inflammation, To increase ROM, To improve nutrient delivery to tissue Vasopneumatic device: Yes For the Purpose of:: To decrease pain, To decrease swelling/inflammation, To increase ROM Please do not hesitate to contact me at [phone] by phone or if you have questions or concerns regarding this new plan of care! Sincerely, Pepito Espinoza DPT
--- NOTE | 2022-09-20 14:28 | HP.PTDCSUM ---
It has been my pleasure to treat MARCI WONG referred by Lobo Easton PA-C, with the diagnosis of R partial knee arthroplasty for a total of 12 visit(s). Discharge Date: 09/20/22 Please see the following information for a summary of their discharge status. Subjective: marci is doing great, no issues. Pt. reports being 100% better overall. He reports no pain and is very consistent with his HEP. Pt. reports walking between 2-3 miles per day. R medial knee Pain Intensity (Out of 10): 0 % Improvement: 100 Objective/Function: ROM: 0-0-128deg. MMT: 5/5 throughout without increase in symptoms. GAIT: pt. has fairly normal gait pattern without increase in symptoms. Occasional VCing to increase TKE during Stance phase. STAIRS: normal with 1 HR. Pt. is currently independent with all gym exercises as well. TU.5sec without AD. 6 MWT: 1351feet no AD. Goal 1:: LTG: Pt. to be I with HEP and with gym exercises. Goal Progress: Goal Met Goal 2:: STG: Pt. sleep throughout the night without increase in symptoms. Goal Progress: Goal Met Goal 3:: STG: Pt. to have increased R knee ROM to 0-0-120deg without increase in symptoms. Goal Progress: Goal Met Goal 4:: LTG: Pt. to have symmetrical strength between BLEs without increase in symptoms. Goal Progress: Goal Met Goal 5:: LTG: Pt. to be able to negotiate 1 flight of stairs with 1 HR with reciprocal pattern. Goal Progress: Goal Met Goal 6:: LTG: Pt. to ambulate 1000' without AD with normal gait pattern without increase in symptoms. Goal Progress: Goal Met Plan: Pt. is doing great. He is I with his HEP and has met all goals. I talked to him about continuing to be proactive with wallking and exercises as he plans to get back to golf this spring. Pt. consents. Discharge Comments: Pt. will be Dc to HEP at this point in time. Pt. to see physician in a few weeks. Overall patient is doing great. If there are questions or concerns regarding this patient's physical therapy, please feel free to call me at [phone]. Thank you for the referral of this patient. Sincerely, Pepito L Sipos, DPT Balance/Gait/Functional tests - Balance/Special Test Scores Lower Extremity Functional Score: 80 TUG Test Time Seconds: 7.5 Tug Test: <10 sec.=free mobile WOMAC Total Score: 68 WOMAC Percentage: 29.1700
== END 2022-09-18 19:00 | disposition home or self-care (01) ==
LOC: PT 10:30
PROVIDERS: PCP Family Medicine; Referring Provider Physician Assistant Surgical; Visit Provider Physician Assistant Surgical
DX: M17.11 Unilateral primary osteoarthritis, right knee (principal); Z47.1 Aftercare following joint replacement surgery; Z96.651 Presence of right artificial knee joint
CPT/HCPCS: 97110; 97161; 97164

== ENCOUNTER 2024-06-26 09:30 | Outpatient (RCR) | payer MEDICARE, OTHER, SELFPAY ==
--- NOTE | 2024-04-22 12:42 | HP.PTEVAL ---
Patient's Visit Information Visit Information Visit Information: MARCI WONG is a 78 year old M referred to Physical Therapy by Yosi Alaniz PA-C with a diagnosis of L shoulder strain. Date of Evaluation: 04/22/24 Physical Therapist: Pepito Espinoza DPT Visit Plan Frequency: 2x /Week Duration: 4 Weeks Plan: 1) phase III strengthening of L RTC and deltoid Subjective Subjective: Pt. is here today for his initial evaluation with diagnosis of L shoulder strain. Pt. reports ~1 month ago he started having difficulty with lifting dishes, no mech of injury. He reports no pain. He is still able to play golf without much pain. Pt. is sleeping oaky. No N/T noted. Pt. had an MRI, but is awaiting the results. Pt. reports he is mostly weak, not much pain. He is L hand dominant. Pt. is hopeful to increase his strength in order to get back to all reactional and house hold activities without limitations. Pain L shoulder: Pain Intensity (Out of 10): 0 Pain Intensity Range: 0 and 2 Objective Objective: POSTURE: pt. has rounded shoulders and FH posture. Pt. is able to improve with VC/TCINg. PALAPTION: pt. has some mild tenderness around biceps region and anterior shoulder. ROM: Pt. has decent active ROM of L shoulder: flexion 170deg, abd 170deg, functional ER C3, functional IR L1. Pt. reports minimal to no pain with AROM this date. Pt. has full PROM without increase in symptoms. MMT: RUE: shoulder: ER 9.6#, IR 15.9#, flexion 8.0#, abd 16.4#, elbow 5/5 throughout. LUE: shoulder ER 6.3#, IR 20.0#, flexion 15.7#, abd 6.8#, elbow 5/5 throughout. Pt. had no pain with all MMT, but did have marked weakness of his external rotators. Special Tests L Shoulder Lift Off Test - Subscapular Tear: Negative L Shoulder Drop Sign - IS Test: Negative L Shoulder Empty Can - SS: Positive L Shoulder Belly Press - SupScap: Negative L Shoulder Ken Jaime - Impingement: Negative L Shoulder Speeds Test - Labrum/Biceps: Positive Comments: special testing was + for weakness not pain Balance/Special Test Scores Quick DASH Score: 13.6350 Goals Goal 1:: LTG: Pt. to be I with HEP. Goal Time Frame: 4-6 Weeks Goal 2:: LTG: Pt. to have symmetrical strength between BUEs. Goal Time Frame: 4-6 Weeks Goal 3:: LTG: Pt. to be able to lift dishes up into cabinets without issues. Goal Time Frame: 4-6 Weeks Goal 4:: LTG: Pt. to golf without issues of LUE. Goal Time Frame: 4-6 Weeks Rehabilitation Potential Physical Therapy Diagnosis: Pt. has signs and symptoms consistent with L shoulder strain. He has decent ROM of his L shoulder, but has marked weakness in his L shoulder, mainly into external rotation. Due this I suspect a RTC injury possible tear. Pt. would benefit from PT to increase his strength in order to increase ability to complete all ADLs and recreational activities. Rehabilitation Potential: Fair Anticipated Interventions Patient/Client Instruction: Educate patient on: Condition, Plan of Care, Risk Factors and Benefits of Fitness Program For the Purpose of:: To improve decision making, To facilitate caregiver knowledge, To improve self management, To prevent re-injury, To improve ability to perform tasks related to life management and To improve tolerance to ADL's Therapeutic Exercise to Include: Strength training, Power training, Endurance training, Body mechanics, Active ROM and Scapular Strength/Stabilization For the Purpose of:: To increase ROM, To improve nutrient delivery to tissue, To increase oxygenation perfusion, To improve muscle performance and motor function, To improve ability to perform ADL's and To decrease soft tissue restriction Text: Thank you for the opportunity to evaluate your patient. For Medicare and Medicare HMO plans, please review the plan of care and approve it. It will need to be FAXED BACK to us at [phone] for Medicare purposes. For Medicare only, by signing this I certify the plan of care. Please let me know if there are questions or concerns regarding this plan of care. Physician Signature: Date:
== END 2024-06-26 19:00 | disposition home or self-care (01) ==
LOC: PT 09:30
PROVIDERS: PCP Family Medicine; Referring Provider Physician Assistant; Visit Provider Physician Assistant
DX: S46.812D Strain of other muscles, fascia and tendons at shoulder and upper arm level, left arm, subsequent encounter (principal); R53.1 Weakness; Z74.09 Other reduced mobility
CPT/HCPCS: 97110; 97161; 97530

== ENCOUNTER 2025-03-05 14:00 | Outpatient (RCR) | payer MEDICARE, OTHER, SELFPAY ==
--- NOTE | 2024-12-23 10:06 | HP.PTEVAL_ITS ---
Patient's Visit Information Visit Information Visit Information: MARCI WONG is a 79 year old M referred to Physical Therapy by Dr. Dc Herrera MD with a diagnosis of abnormality of gait, balance disorder. Date of Evaluation: 12/23/24 Physical Therapist: Pepito Espinoza DPT Visit Plan Frequency: 2x /Week Duration: 6 Weeks Plan: 1) BLE strengthening both HEP and in gym 2) static and dynamic balance training. Subjective Subjective: Pt. is here today for his initial evaluation with diagnosis of abnormality of gait, balance disorder. Pt. reports no major pain. He has noticed having increased difficulty with his balance and walking, No falls, but feels more unstable. Pt. has also noticed increased BLE weakness. Pt. is still doing all ADls and recreational activities without limitations, but jsut does not feel steady. Pt would like to get back to all activities with increased stability. Objective Objective: POSTURE: Pt. has slight FH posture. Wide TIMOTHY noted. PALPATION: normal, no issues. NEURO: normal throughout. MMT: RLE: ankle 5-/5 throughout.; knee: ext 21.3#, flexion 13.8#; hip: flexion 16.9#, abd 11.8#, ext 13.8#. LLE: ankle 5-/5 throughout; knee; ext 22.9#, flexion 16.8#; hip: flexion 12.9#, abd 13.9#, ext 11.9#. GAIT: Pt. ambulates without AD, but does have some marked deviation from his path, but able to correct without external assistance. Balance/Special Test Scores Functional Gait Assessment Score: 19 % Disability: 36.6700 Lower Extremity Functional Score: 64 TUG Test Time Seconds: 14 30 Second Chair Rise Test Seconds: 9 6 Minute Walk Test: 918feet no AD Goals Goal 1:: LTG: Pt. to be I with gym and HEP for balance and BLE strengthening. Goal Time Frame: 4-6 Weeks Goal 2:: LTG: Pt. complete FGA with score greater than 23/30. Goal Time Frame: 4-6 Weeks Goal 3:: LTG: pt. to complete 30sec sit to stand test with at least 15 reps. Goal Time Frame: 4-6 Weeks Goal 4:: LTG: Pt. to complete TUG with time less than 10seconds without AD. Goal Time Frame: 4-6 Weeks Goal 5:: LTG: Pt. to have symmetrical strength between BLEs. Goal Time Frame: 4-6 Weeks Rehabilitation Potential Physical Therapy Diagnosis: Pt. has signs and symptoms consistent with abnormality of gait, balance disorder. Pt. has marked BLE weakness and difficulty with dynamic movements. Pt. would benefit from PT to address the above limitations progressing back to all previous levels of function. Rehabilitation Potential: Excellent Anticipated Interventions Patient/Client Instruction: Educate patient on: Condition, Plan of Care, Risk Factors and Benefits of Fitness Program For the Purpose of:: To foster healthy habits, To improve decision making, To facilitate caregiver knowledge, To improve self management, To prevent re- injury, To improve ability to perform tasks related to life management and To improve tolerance to ADL's Therapeutic Exercise to Include: Strength training, Endurance training, Balance training, Coordination, Postural training, Flexibilty training and Gait and locomotor training For the Purpose of:: To decrease pain, To decrease swelling/inflammation, To increase ROM, To improve nutrient delivery to tissue, To increase oxygenation perfusion, To improve ability to perform ADL's and To increase tolerance to activity/condition/position Text: Thank you for the opportunity to evaluate your patient. For Medicare and Medicare HMO plans, please review the plan of care and approve it. It will need to be FAXED BACK to us at [phone] for Medicare purposes. For Medicare only, by signing this I certify the plan of care. Please let me know if there are questions or concerns regarding this plan of care. Physician Signature: Date:
--- NOTE | 2025-01-22 12:46 | HP.PTREVAL_ITS ---
Re-Evaluation Intro: Dr. Dc Herrera MD, It has been my pleasure to treat MARCI WONG over the last 9 visits for abnormality of gait, balance disorder. Please see the progress note below for an update on the physical therapy plan of care! Subjective Subjective: Pt. reports overall doing better. He is still having some issues with his balance. Pt. reports doing much better with his strength in his legs, but does still have trouble getting up out of a chair. Objective Objective/Function: MMT: R knee: ext 31.1#, flex 25.2# L knee: ext 33.3#, flex 23.3# GAIT: Pt. has fairly normal gait pattern. Pt. does have a slightly crouched pattern with gait, but not severe. He does not use AD. PT. did have increased difficulty with narrow TIMOTHY gait, but able to use stepping stratagy to correct his balance. Plan Plan Plan: Cont. with dynamic balance. He has started back to gym exercises I. Pt. to continue with that as well. Work on sit to stand and dynamic balance with directional changes. Balance/Gait/Functional tests Balance/Special Test Scores Functional Gait Assessment Score: 20 % Disability: 33.3400 Lower Extremity Functional Score: 72 TUG Test Time Seconds: 10.5 Tug Test: <20 sec.=mostly independent 30 Second Chair Rise Test Seconds: 9 6 Minute Walk Test: 918feet no AD Goals Goals Goal 1:: LTG: Pt. to be I with gym and HEP for balance and BLE strengthening. Goal Time Frame: 4-6 Weeks Goal 2:: LTG: Pt. complete FGA with score greater than 23/30. Goal Time Frame: 4-6 Weeks Goal Progress: Progressing Goal 3:: LTG: pt. to complete 30sec sit to stand test with at least 15 reps. Goal Time Frame: 4-6 Weeks Goal Progress: Progressing Goal 4:: LTG: Pt. to complete TUG with time less than 10seconds without AD. Goal Time Frame: 4-6 Weeks Goal 5:: LTG: Pt. to have symmetrical strength between BLEs. Goal Time Frame: 4-6 Weeks Anticipated Interventions Anticipated Interventions Patient/Client Instruction: Educate patient on: Condition, Plan of Care, Risk Factors and Benefits of Fitness Program For the Purpose of:: To foster healthy habits, To improve decision making, To facilitate caregiver knowledge, To improve self management, To prevent re- injury, To improve ability to perform tasks related to life management and To improve tolerance to ADL's Therapeutic Exercise to Include: Strength training, Endurance training, Balance training, Coordination, Postural training, Flexibilty training and Gait and locomotor training For the Purpose of:: To decrease pain, To decrease swelling/inflammation, To increase ROM, To improve nutrient delivery to tissue, To increase oxygenation perfusion, To improve ability to perform ADL's and To increase tolerance to activity/condition/position Re-Evaluation Ending Re-evaluation ending: Please do not hesitate to contact me at [phone] by phone or if you have questions or concerns regarding this new plan of care! Sincerely, Pepito Espinoza DPT
== END 2025-03-05 19:00 | disposition home or self-care (01) ==
LOC: PT 14:00
PROVIDERS: PCP Family Medicine; Referring Provider Family Medicine; Visit Provider Family Medicine
DX: R26.89 Other abnormalities of gait and mobility (principal)
CPT/HCPCS: 97110; 97161; 97530

== ENCOUNTER 2025-03-10 08:41 | Emergency (ER) | payer MEDICARE, OTHER, SELFPAY ==
[2025-03-10 08:42] VITALS: BP 147/66; PULSE 59; RESP 14; TEMP 36.6; O2SAT 98; BMI 22.7
--- NOTE | 2025-03-10 09:10 | EDS_ITS ---
HPI HPI - Fall History of Present Illness Chief Complaint: Fall Informant: patient Occured/Mechanism Occurred: Days (4) Mechanism/Context: Yes same level fall Pain/Injury Pain Location: head and chest Quality of Pain: Sharp (Chest) and Aching (Head) Worsened by: Nothing Relieved by: Nothing Associated Symptoms Associated Symptoms: Positive for Parasthesias (Left hand); Negative for Weakness, Loss of function, Inability to ambulate or Loss of consciousness Narrative Narrative: Patient presents after a fall that occurred 4 days ago. Patient states he got up to use the bathroom the middle night when he tripped and fell. Patient hit the left side of his head. Patient also complains of pain in his bilateral chest and ribs. Patient denies any shortness of breath. Patient denies any nausea or vomiting. Patient admits to a mild headache. Patient also admits to some mild neck pain. Patient denies any paresthesias or weakness. Patient denies any other injuries. [facility] Medical History (Updated 03/10/25 @ 11:[address] Pipe Denson, ) Wears glasses Gout Non-smoker Hypertension Normal colonoscopy (~08/2018) Home Medications ?Medication ?Instructions ?Recorded ?Last Taken ?Type allopurinol 300 mg tablet 300 tablet PO DAILY 03/30/22 Unknown History gabapentin 300 mg capsule 300 mg PO BID 03/30/22 Unkno wn History trazodone 50 mg tablet 50 mg PO DAILY 03/30/22 Unkn own History valsartan 320 1 tab PO DAILY 03/30/22 Unkn own History mg-hydrochlorothiazide 12.5 mg tablet aspirin 81 mg tablet,delayed 81 mg PO DAILY #20 tabs 1 Unknown Rx release oxycodone 5 mg capsule 5 mg PO Q4H PRN pain 7 days #42 04/14/22 Unknown Rx caps hydrocodone-acetaminophen 5-325mg 1 tab PO Q6H PRN PRN Pain 3 days 03/10/25 Unknown Rx 5mg-325mg #10 TABLETS Allergy/AdvReac Type Severity Reaction Status Date / Time No Known Allergies Allergy Verified 03/10/25 08:41 Surgical History Hx of knee surgery Social History Smoking Status: Never smoker ROS ROS ED Constitutional Constitutional ED: Denies chills or fever(s) Eyes Eyes: Denies blurry vision or change in vision ENT ENT ED: Denies rhinorrhea or sore throat Cardiovascular Cardiovascular: Reports chest pain; Denies palpitations Respiratory/Chest Respiratory/Chest: Denies cough or dyspnea Gastrointestinal Gastrointestinal: Denies nausea or vomiting Genitourinary Genitourinary ED: Denies dysuria or hematuria Musculoskeletal Musculoskeletal: Reports neck pain; Denies back pain Integumentary Reports Abrasions; Denies abscess or rash Neurologic Neurologic: Denies headache(s) or weakness Allergic/Immunologic Allergic/Immunologic ED: Denies mouth swelling or urticaria EXAM Physical Exam Const Vital Signs: 03/10/25 08:42 03/10/25 09:43 03/10/25 09:43 Temperature 98 F Temperature Source Temporal Pulse Rate 59 L 54 L Respiratory Rate 14 18 Respiratory Effort Normal Respiratory Depth Normal Respiratory Pattern Normal Blood Pressure 147/66 H 153/79 H Blood Pressure Mean 93 103 Pulse Ox 98 97 Oxygen Delivery Method Room Air Room Air Room Air 03/10/25 11:00 Temperature Temperature Source Pulse Rate 52 L Respiratory Rate 16 Respiratory Effort Respiratory Depth Respiratory Pattern Blood Pressure 158/69 H Blood Pressure Mean 98 Pulse Ox 97 Oxygen Delivery Method Room Air Positive well nourished and well developed General Appearance ED: well developed and NAD HEENT Reports normocephalic HEENT Narrative: There is a superficial healing abrasion over the left scalp. Neck full ROM Neck Narrative: There is mild cervical paraspinal tenderness. There is minimal midline tenderness. There is no bony crepitance or step-off. There is good range of motion. Chest Wall Chest Narrative: There is mild tenderness over the right lower ribs. There is no subcutaneous emphysema noted. There is no edema or ecchymosis. Resp normal respiratory effort and clear to auscultation bilaterally Cardio regular rate and regular rhythm GI non-tender and non-distended Palpation: soft Neuro oriented x3, CN's II-XII intact bilaterally, moves all extremities, no focal motor deficits and no sensory deficits noted [place] Coma Scale: document GCS findings Spontaneous Obeys Commands Oriented 15 Sensorium / Orientation: alert Motor Exam: strength 5/5 throughout MDM MDM MDM Narrative Medical decision making narrative: Differential diagnosis includes rib fracture, pneumothorax, chest wall contusion, cervical spine fracture, and cervical strain. CT scan of the cervical spine will be obtained to assess for cervical spine fracture. X-rays of the bilateral ribs will be obtained to assess for rib fracture or pneumothorax. Radiography Diagnostic Testing: Clinical Impression(s) from Imaging Studies Cervical Spine CT 03/10/25 09:26 IMPRESSION: Multilevel degenerative changes as described. Nondisplaced fracture of the C6 lamina on the left side. Red Alert: Fracture of lef tC6 lamina The critical information above was relayed directly by me by telephone to Pipe Denson on 03/10/2025 at 10:32 am with readback verification. Reading Location: [id number] Ribs w/Chest X-Ray 03/10/25 09:26 IMPRESSION: Nondisplaced acute fracture of the right 8th and 9th ribs as well as healing fractures of the right 6th and 7th ribs. No evidence of pneumothorax. Reading Location: [id number] X-rays of the bilateral ribs were obtained. There are 9 views. On my indepe ndent interpretation, there are nondisplaced fractures of the 8th and 9th ribs. There are healing fractures of the right 6th and 7th ribs. There is no pneumothorax noted. Radiologist also interpreted the x-ray and agrees. CT scan of the cervical spine was obtained. There is a nondisplaced fracture of the C6 lamina on the left. There is no soft tissue swelling. This was interpreted by the radiologist and was also independently reviewed by myself. Management Discussion w/another healthcare provider: [facility] Treatment and Re-Evaluation Narrative: Patient was advised of his findings. Case was discussed with Dr. Lainez from orthopedics. He recommended placing the patient in a cervical collar for 6 weeks. Patient was given a dose of [place] here. Patient was given a prescription for short course of [place]. Patient was instructed to take 10-15 deep breaths every hour while awake to prevent atelectasis and pneumonia. Patient was instructed to follow-up with his primary care physician in 5 to 7 days. Patient understood and was agreeable with the plan. All questions were answered. Discharge Plan Triage Chief Complaint: Fall ED Provider: Pipe Denson Dx/Rx/DC Orders Clinical Impression: Fracture of right ninth rib, Fracture of right eighth rib, Fall, Closed head injury, Cervical vertebral closed fracture Instructions: ED Rib Fracture, ED Head Injury (Adult) Prescriptions: New hydrocodone-acetaminophen 5-325 mg tablet 1 tab PO Q6H PRN PRN (Reason: Pain) 3 Days Qty: 10 0RF No Action gabapentin 300 mg capsule 300 mg PO BID trazodone 50 mg tablet 50 mg PO DAILY allopurinol 300 mg tablet 300 tablet PO DAILY valsartan-hydrochlorothiazide 320-12.5 mg tablet 1 tab PO DAILY oxycodone 5 mg capsule 5 mg PO Q4H PRN (Reason: pain) 7 Days Qty: 42 0RF aspirin 81 mg tablet,delayed release (DR/EC) 81 mg PO DAILY Qty: 20 0RF Primary Care Provider: Dc Herrera Referrals: Alan Lainez MD [Med Staff - Active Staff] - 3-5 Days Dc Herrera MD [Primary Care Provider] - 5-7 Days Print Language: Estonian Disposition Disposition: Home, Self Care
--- NOTE | 2025-03-10 09:26 | RAD_ITS ---
PROCEDURE: RIBS YASMANI MIN 4V W/PA CHEST 03/10/2025 REASON FOR EXAM: FALL TECHNIQUE: Procedure Code: RADRIBB Modality: DX Procedure: RIBS YASMANI MIN 4V W/PA CHEST COMPARISON: None FINDINGS: Hyperinflation. The lungs are clear. Nondisplaced fracture of the right 8th and 9th ribs. Healing fracture of the right 6th and 7th ribs. RAD/Ribs Yasmani Min 4V w/PA Chest IMPRESSION: Nondisplaced acute fracture of the right 8th and 9th ribs as well as healing fr actures of the right 6th and 7th ribs. No evidence of pneumothorax. Reading Location: [facility]
--- NOTE | 2025-03-10 09:26 | CT_ITS ---
PROCEDURE: SPINE CERVICAL WITHOUT CONTRAS 03/10/2025 REASON FOR EXAM: INJURY/PAIN Recent fall. TECHNIQUE: Procedure Code: CTS Modality: CT Procedure: SPINE CERVICAL WITHOUT CONTRAS Coronal and Sagittal reconstruction series were provided. One or more dose reduction techniques were used (e.g., Automated exposure control, adjustment of the mA and/or kV according to patient size, use of iterative reconstruction technique. RADIATION DOSE SUMMARY: CTDlvol: 21.52 mGy DLP: 447.43 mGycm COMPARISON: None FINDINGS: Alignment: Normal cervical lordosis. Vertebrae: Spondylosis. Soft Tissues: No prevertebral soft tissue swelling. Other: Calcification of the carotid arteries. C1-2: Unremarkable C2-3: Unremarkable C3-4: Moderate degree of disc space narrowing. Spondylosis. Uncovertebral arthrosis. Left neural foraminal stenosis. C4-5: Mild degree of disc space narrowing. Facet joint osteoarthritis and hypertrophy worse on the left side. No significant stenosis seen. C5-6: Mild degree of disc space narrowing. Nondisplaced fracture of the left C6 lamina adjacent to the left facet joint. This is seen on axial image number 94 through 97. C6-7: Marked degree of disc space narrowing. Spondylosis. Mild degree of bilateral neural foraminal stenosis. C7-T1: Disc space narrowing. CT/Spine Cervical without Contras IMPRESSION: Multilevel degenerative changes as described. Nondisplaced fracture of the C6 lamina on the left side. Red Alert: Fracture of lef tC6 lamina The critical information above was relayed directly by me by telephone to Pipe Da Silva on 03/10/2025 at 10:32 am with readback verification. Reading Location: [id number]
[2025-03-10 09:43] VITALS: BP 153/79; PULSE 54; RESP 18; O2SAT 97
[2025-03-10 11:00] VITALS: BP 158/69; PULSE 52; RESP 16; O2SAT 97
[2025-03-10 11:56] VITALS: BP 138/90; PULSE 55; RESP 18; TEMP 37.1; O2SAT 99
== END 2025-03-10 11:58 | disposition home or self-care (01) ==
PROVIDERS: Emergency Provider Emergency Medicine; PCP Family Medicine; Visit Provider Emergency Medicine
DX: S12.501A Unspecified nondisplaced fracture of sixth cervical vertebra, initial encounter for closed fracture (principal); S00.01XA Abrasion of scalp, initial encounter; S22.41XA Multiple fractures of ribs, right side, initial encounter for closed fracture; W01.0XXA Fall on same level from slipping, tripping and stumbling without subsequent striking against object, initial encounter; M10.9 Gout, unspecified; I10 Essential (primary) hypertension; Z79.899 Other long term (current) drug therapy; Z79.82 Long term (current) use of aspirin
CPT/HCPCS: 71111; 72125; 99282

== ENCOUNTER → 2025-03-23 | Outpatient (CLI) | payer MEDICARE, OTHER, SELFPAY ==
--- NOTE | 2025-03-23 09:35 | MRI_ITS ---
PROCEDURE: SPINE CERVICAL (ROUTINE) 03/23/2025 REASON FOR EXAM: C6 LAMINA FX, RADICULOPATHY/MYELOPATHY TECHNIQUE: [facility] [place] [facility] MR Procedure: SPINE CERVICAL (ROUTINE) Multiplanar and multisequence images were obtained without IV contrast administration. FINDINGS: Vertebrae: Cervical vertebral body heights are preserved. A nondisplaced fracture of the left C5 lamina of hyperintense signal on STIR. Alignment: Normal. No spondylolisthesis. Spinal Cord: Cervical spinal cord is of normal size and signal intensities. Structures at the foramen magnum are unremarkable. C2-3: Disc osteophyte complex. Facet joint arthropathy. Mild left foramina stenosis. No right foraminal or canal stenosis. C3-4: Disc osteophyte complex. Uncovertebral hypertrophy. Severe left foramina stenosis. Facet joint arthropathy. No right foramina stenosis. Moderate canal stenosis. C4-5: Disc osteophyte complex. Uncovertebral hypertrophy. Mild bilateral foramina stenosis. Moderate canal stenosis. C5-6: Disc osteophyte complex measures 2 mm. Facet joints arthropathy. No significant foraminal or canal stenosis. C6-7: Disc osteophyte complex. Uncovertebral hypertrophy. Severe left foramina stenosis. Mild canal stenosis. No right foramina stenosis. C7-T1: Facet joints arthropathy. No foraminal or canal stenosis. MRI/Spine Cervical (Routine) IMPRESSION: A nondisplaced fracture of the left C5 lamina of hyperintense signal on STIR. No evidence of additional acute injuries. No epidural hemorrhage. Multilevel degenerate changes as detailed. Reading Location: [id number]
== END | disposition home or self-care (01) ==
LOC: MRI 09:34
PROVIDERS: PCP Family Medicine; Referring Provider Student in an Organized Health Care Education/Training Program; Visit Provider Student in an Organized Health Care Education/Training Program
DX: G95.9 Disease of spinal cord, unspecified (principal); S12.500A Unspecified displaced fracture of sixth cervical vertebra, initial encounter for closed fracture; M54.12 Radiculopathy, cervical region
CPT/HCPCS: 72141

== ENCOUNTER → 2025-03-31 | Outpatient (CLI) | payer MEDICARE, OTHER, SELFPAY | END | disposition home or self-care (01) | LOC: CT 12:39 | PROVIDERS: PCP Family Medicine; Referring Provider Student in an Organized Health Care Education/Training Program; Visit Provider Student in an Organized Health Care Education/Training Program | DX: S12.501A Unspecified nondisplaced fracture of sixth cervical vertebra, initial encounter for closed fracture (principal); G95.9 Disease of spinal cord, unspecified; M54.12 Radiculopathy, cervical region | CPT/HCPCS: 72125 ==

== ENCOUNTER 2025-04-13 09:53 | Observation (INO) | payer MEDICARE, OTHER, SELFPAY ==
[2025-04-09 08:54] LABS: Hematocrit 36.4 % (40-54); Hemoglobin 12.8 g/dL (13.0-16.5); Immature Granulocytes Count 0.030 X10^3/uL (0.0-0.0); Mean Corp Hgb Conc 35.2 g/dL (32-36); Mean Corpuscular Volume 101.7 fL (80-94); Mean Platelet Vol. 9.4 fl (6.2-12.0); NRBC Flagged by Analyzer 0 % (0-5); Platelet Count 252 K/mm3 (150-450); RBC Distribution Width CV 12.3 % (11.6-14.6); RBC Distribution Width SD 45.7 fl (35.1-43.9); Red Blood Count 3.58 M/mm3 (4.6-6.2); White Blood Count 6.5 K/mm3 (4.4-11.0)
[2025-04-09 09:33] LABS: Anion Gap 10 (5-15); BUN 19 mg/dL (4-19); BUN/Creat Ratio 20.1 RATIO (10-20); Calcium,Total 9.9 mg/dL (7.6-11.0); Carbon Dioxide 27.4 mmol/L (21.0-32.0); Chloride 101 mmol/L (98-108); Glucose 106 mg/dL (70-99); Potassium 4.2 mmol/L (3.3-5.1)
[2025-04-09 09:59] LABS: Magnesium 1.9 mg/dL (1.5-2.2)
--- NOTE | 2025-04-09 12:43 | PAT.ANESEVAL ---
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 When Was Last Pacemaker Check QUESTION #4 FULL TEXT: You/Your Family Experience fever (hyperthermia) with Anesthesia Last Oral Intake Last Oral intake: Last Oral Intake NPO since Meds taken in AM with sips of water? Meds patient instructed to take am of surgery PONV PONV - automotive parts coordinator: PONV - automotive parts coordinator Female No 04/07/25 15:15 HX of Motion Sickness No 04/07/25 15:15 HX of N/V After Surgery No 04/07/25 15:15 Non-Smoker Yes 04/07/25 15:15 Duration of Surgery greater Yes 04/07/25 15:15 than 60 minutes Number of Risk Factors 2 04/07/25 15:15 PONV Score Moderate Risk 04/07/25 15:15 Height & Weight Height & Weight: Anesthesia: Height & Weight Height 5 ft 10 in 03/30/25 15:29 Respiratory Assessment Respiratory Assessment - automotive parts coordinator: Respiratory Tract Infection Hx - automotive parts coordinator Hx Respiratory Tract Infection No 04/07/25 15:15 STOP Sleep Apnea STOP Sleep Apnea - automotive parts coordinator: STOP Sleep Apnea - automotive parts coordinator Hx Hypertension Yes: CONTROLLED WITH MEDS 04/07/25 15:15 Hx Sleep Apnea No 04/07/25 15:15 CPAP BIPAP Do you snore loudly (louder No 04/07/25 15:15 than talking or can be heard Do you often feel tired/ No 04/07/25 15:15 fatigued/ sleepy during daytime? Has anyone observed you stop No 04/07/25 15:15 breathing during sleep? STOP Results Negative 04/07/25 15:15 QUESTION #5 FULL TEXT : Do you snore loudly (louder than talking or can be heard through closed doors)? 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 Specify any problems Hx of Preganancy in last 3 N/A 04/07/25 15:15 Months Nurse Filling Out Transfusion [email or web address] 04/07/25 15:15 & Questions: Date: 04/07/25 04/07/25 15:15 Time: 15:22 04/07/25 15:15 Patient unable to answer at this time (ie. confused, unrespo /Reproduction History /Reproductive History - automotive parts coordinator: /Reproductive Hx- automotive parts coordinator Hx Now Gestational Age (in weeks): EDC: Hx Hx Para Hx Section SAB No 04/07/22 13:23 PFSH Medical History Wears glasses Gout Non-smoker Hypertension Normal colonoscopy (~08/2018) Home Medications ?Medication ?Instructions ?Recorded ?Last Taken ?Type allopurinol 300 mg tablet 300 tablet PO DAILY 03/30/22 Unknown History gabapentin 300 mg capsule 300 mg PO BID 03/30/22 Unknown History trazodone 50 mg tablet 75 mg PO QHS 03/30/22 Unknown History valsartan 320 1 tab PO DAILY 03/30/22 Unknown History mg-hydrochlorothiazide 12.5 mg tablet cyclobenzaprine 5 mg tablet 5 mg PO TID PRN muscle spasm #30 03/19/25 Unknown Rx tabs cholecalciferol (vitamin D3) 25 25 mcg PO DAILY 04/07/25 Unknown History mcg (1,000 unit) capsule (Vitamin D3) ibuprofen 200 mg tablet (Addaprin) 200 mg PO Q8H PRN pain 04/07/25 Unknown History [id number]-[id number] 300 mcg-K 60 1 tab PO DAILY 04/07/25 Unknown History mcg-lycop 600 mcg-lutein 300 mcg tablet (Centrum Silver Ultra Men's) Allergy/AdvReac Type Severity Reaction Status Date / Time atenolol AdvReac UNKNOWN Verified 04/09/25 10:13 benazepril AdvReac UNKNOWN Verified 04/09/25 10:13 Surgical History H/O foot surgery Hx of knee surgery Social History Smoking Status: Never smoker Audit: Pertinent Findings Pertinent Findings EKG Perinent findings: 08/04/2022. Normal sinus rhythm 89 bpm. Normal EKG. Recommendation Anesthesia Recommendation Anesthesia recommendation: OPTIMIZED for anesthesia
[2025-04-13] VITALS (13 sets, daily range): BP systolic 140–170; BP diastolic 81–98; PULSE 67–95; RESP 16–18; TEMP 36.2–36.6; O2SAT 94–100; BMI 22.0; BMI 22.9
[2025-04-13] MEDS: Lactated Ringers 1,000 ML 15 ML IV (06:15)
[2025-04-13] MEDS: Magnesium 2 GM for ERAS IV (06:16)
--- NOTE | 2025-04-13 06:39 | PRE.ANES_ITS ---
ASA Classification* ASA Classification ASA Classification: 2 Assessment & Plan Anesthesia* Anesthesia Assessment Anesthesia Assessment: Discussed sedation and/or anesthesia options, risks, benefits, and alternatives with patient/parents/legal guardian/POA. Questions invited. The patient/parents/legal guardian/POA seems to understand and agrees to proceed with anesthesia plan. Reviewed the physical assessment, medical history, allergy history and patient home medications list prior to surgery/procedure/anesthetic and documented any changes. Performed airway and anesthesia risk assessments. Anesthesia Type Anesthesia Type: General Anesthesia Focused Assessment* Temperature: 97.1 F Pulse Rate: 71 Blood Pressure: 153/81 Respiratory Rate: 16 Pulse Ox: 98 Airway Assessment Mouth opens: >3 cm Mallampati Score: II Labs Anesthesia Preop lab: CBC WBC, (4.4-11.0) 6.5 K/mm3 04/09/25, 08:24 RBC, (4.6-6.2) 3.58 M/mm3 L 04/09/25, 08:24 Hgb, (13.0-16.5) 12.8 g/dL L 04/09/25, 08:24 Hct, (40-54) 36.4 % L 04/09/25, 08:24 Plt Count, (150-450) 252 K/mm3 04/09/25, 08:24 CHEMISTRY Potassium, (3.3-5.1) 4.2 mmol/L 04/09/25, 08:24 Sodium, (133-145) 138 mmol/L 04/09/25, 08:24 Magnesium, (1.5-2.2) 1.9 mg/dL 04/09/25, 08:24 BUN, (4-19) 19 mg/dL 04/09/25, 08:24 Creatinine, (0.70-1.20) 0.94 mg/dL 04/09/25, 08:24 Glucose, (70-99) 106 mg/dL H 04/09/25, 08:24 POC Glucose, (74-106) 94 mg/dL Today, 05:59 COAG Pre-Assessment Diagnosis/Proposed Procedure Planned Operative Procedure(s): ANTERIOR CERVICAL FUSION C6-7 Anesthesia History 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 When Was Last Pacemaker Check QUESTION #4 FULL TEXT: You/Your Family Experience fever (hyperthermia) with Anesthesia Last Oral Intake Last Oral intake: Last Oral Intake NPO since 03:00 04/13/25 05:55 Meds taken in AM with sips of Yes 04/13/25 05:55 water? Meds patient instructed to take am of surgery PONV PONV - information security specialist: PONV - information security specialist Female No 04/07/25 15:15 HX of Motion Sickness No 04/07/25 15:15 HX of N/V After Surgery No 04/07/25 15:15 Non-Smoker Yes 04/07/25 15:15 Duration of Surgery greater Yes 04/07/25 15:15 than 60 minutes Number of Risk Factors 2 04/07/25 15:15 PONV Score Moderate Risk 04/07/25 15:15 Height & Weight Height & Weight: Anesthesia: Height & Weight Height 5 ft 10 in 04/13/25 05:55 Weight: 69.672 kg 04/13/25 05:55 Body Mass Index (BMI) 22.0 04/13/25 05:55 Respiratory Assessment Respiratory Assessment - information security specialist: Respiratory Tract Infection Hx - information security specialist Hx Respiratory Tract Infection No 04/07/25 15:15 STOP Sleep Apnea STOP Sleep Apnea - information security specialist: STOP Sleep Apnea - information security specialist Hx Hypertension Yes: CONTROLLED WITH MEDS 04/07/25 15:15 Hx Sleep Apnea No 04/07/25 15:15 CPAP BIPAP Do you snore loudly (louder No 04/07/25 15:15 than talking or can be heard Do you often feel tired/ No 04/07/25 15:15 fatigued/ sleepy during daytime? Has anyone observed you stop No 04/07/25 15:15 breathing during sleep? STOP Results Negative 04/07/25 15:15 QUESTION #5 FULL TEXT : Do you snore loudly (louder than talking or can be heard through closed doors)? 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 Specify any problems Hx of Preganancy in last 3 N/A 04/07/25 15:15 Months Nurse Filling Out Transfusion [email or web address] 04/07/25 15:15 & Questions: Date: 04/07/25 04/07/25 15:15 Time: 15:22 04/07/25 15:15 Patient unable to answer at this time (ie. confused, unrespo /Reproduction History /Reproductive History - information security specialist: /Reproductive Hx- information security specialist Hx Now Gestational Age (in weeks): EDC: Hx Hx Para Hx Section SAB No 04/07/22 13:23 Active Medications Active Medications: Current Medications Generic Name Dose Route Start Last Admin Trade Name Freq PRN Reason Stop Dose Admin Acetaminophen 1,000 mg 04/13/25 07:30 04/13/25 06:07 Acetaminophen 500 Mg Tablet PO 04/13/25 07:31 1,000 mg PREOP ONE Administration Dexamethasone Sodium Phosphate 8 mg 04/13/25 07:30 Dexamethasone 10 Mg/Ml Vial IV 04/13/25 07:31 INTRAOP ONE Dexamethasone Sodium Phosphate 4 mg 04/13/25 13:00 Dexamethasone 4 Mg/Ml Vial IV 04/13/25 13:01 POSTOP ONE Cefazolin Sodium 2 gm/ Sodium 110 mls @ 150 mls/hr 04/13/25 07:30 Chloride IV 04/13/25 08:13 INTRAOP ONE Tranexamic Acid 1,000 mg/ 110 mls @ 440 mls/hr 04/13/25 07:30 Sodium Chloride IV 04/13/25 07:44 INTRAOP ONE Tranexamic Acid 1,000 mg/ 110 mls @ 440 mls/hr 04/13/25 08:30 Sodium Chloride IV 04/13/25 08:44 INTRAOP ONE Magnesium Sulfate 2 gm/ 104 mls @ 208 mls/hr 04/13/25 07:30 04/13/25 06:16 Dextrose IV 04/13/25 07:59 208 mls/hr PREOP ONE Administration Lactated Ringer's 1,000 mls @ 15 mls/hr 04/13/25 05:45 04/13/25 06:15 IV 15 mls/hr .Q48H MAJO Administration Insulin Human Lispro 1 - 6 unit 04/13/25 07:30 Insulin Lispro 100 Unit/Ml Insuln.Pen SC 04/13/25 13:30 Q4H PRN PRN BG>/= 180, SEE PROTOCOL Protocol PFSH Medical History Wears glasses Gout Non-smoker Hypertension Normal colonoscopy (~08/2018) Home Medications ?Medication ?Instructions ?Recorded ?Last Taken ?Type allopurinol 300 mg tablet 300 tablet PO DAILY 03/30/22 04/12/25 07:00 History gabapentin 300 mg capsule 300 mg PO BID 03/30/2204/13 03:00 History trazodone 50 mg tablet 75 mg PO QHS 03/30/22 17:00 History valsartan 320 1 tab PO DAILY 03/30/2204/01 07:00 History mg-hydrochlorothiazide 12.5 mg tablet cyclobenzaprine 5 mg tablet 5 mg PO TID PRN muscle spa sm #30 03/19/25 Unknown Rx tabs cholecalciferol (vitamin D3) 25 25 mcg PO DAILY 04/12/25 11:00 History mcg (1,000 unit) capsule (Vitamin D3) ibuprofen 200 mg tablet (Addaprin) 200 mg PO Q8H PRN p ain 04/07/25 Unknown History [id number]-[id number] 300 mcg-K 60 1 tab PO DAILY 04/07/25 04/12/25 07:00 History mcg-lycop 600 mcg-lutein 300 mcg tablet (Centrum Silver Ultra Men's) Allergy/AdvReac Type Severity Reaction Status Date / Time atenolol AdvReac UNKNOWN Verified 04/13/25 05:49 benazepril AdvReac UNKNOWN Verified 04/13/25 05:49 Surgical History H/O foot surgery Hx of knee surgery Social History Smoking Status: Never smoker Review of Systems (Anesthesia) ROS Narrative System reviewed and no additional complaints, except as documented.
--- NOTE | 2025-04-13 07:23 | HP.PCM_ITS ---
History and Physical Date of Admission: 04/13/25 MR#: [id number] Acct: [id number] Name: MARCI WONG Rep #: [id number] : 1945 Provider: Dr. Alan Lainez MD Age/Sex: 79/M Location: [facility] [place] Status: Signed Intake Vital Signs 03/30/2515:29 Height 5 ft 10 in Weight: 155 lb BMI 22.2 Intake Visit Reasons: cervical spine Chief Complaint: pre-op Allergies atenolol Adverse Reaction (Verified 04/09/25 10:13) UNKNOWN benazepril Adverse Reaction (Verified 04/09/25 10:13) UNKNOWN Medications ?Medication ?Instructions ?Recorded ?Confirmed ?Type allopurinol 300 mg tablet 300 tablet PO DAILY 03/30/22 04/09/25 Hi story gabapentin 300 mg capsule 300 mg PO BID 03/30/22 04/09/25 History trazodone 50 mg tablet 75 mg PO QHS 03/30/22 04/09/25 History valsartan 320 1 tab PO DAILY 03/30/22 04/09/25 History mg-hydrochlorothiazide 12.5 mg tablet cyclobenzaprine 5 mg tablet 5 mg PO TID PRN muscle spasm #30 5 04/09/25 Rx tabs cholecalciferol (vitamin D3) 25 25 mcg PO DAILY 04/07/25 04/09/25 Histor y mcg (1,000 unit) capsule (Vitamin D3) ibuprofen 200 mg tablet (Addaprin) 200 mg PO Q8H PRN pain 04/07/25 04/09/25 History bcxpxdkl-sf-teyic 300 mcg-K 60 1 tab PO DAILY 04/07/25 04/09/25 History mcg-lycop 600 mcg-lutein 300 mcg tablet (Centrum Silver Ultra Men's) Have you fallen in the past year?: Yes PFSH Medical History Wears glasses Gout Non-smoker Hypertension Normal colonoscopy (~08/2018) Surgical History H/O foot surgery Hx of knee surgery Social History Smoking Status: Never smoker HPI cervical spine Details: This documentation accurately reflects the service provided and the decisions made by me, Dr. Alan Lainez MD 04/09/25 1011. Part of today?s visit was documented by Isatu ANDINO, acting as scribe. MARCI WONG is a 79 year old M here today for preop, cervical spine, dos 04/13/25. Patient states that his PCP is supposed to be faxing his medical clearance today and that he had his EKG and blood work done this morning. The patient is a 79-year-old male presenting with cervical spondylosis at C6-7 with an associated fracture. The condition involves significant arthritic change s and a fracture at the facet joint, causing nerve compression and associated symptoms. The patient has been experiencing nerve irritation, which may not fully recover post-surgery, although pain and numbness are expected to improve. The surgical plan involves an anterior approach to relieve nerve pressure by removing the osteophyte and stabilizing the area with a bone graft and screws. The patient has been advised to wear a cervical collar post-surgery for two weeks, with gradual weaning thereafter. Physical therapy will be initiated to address post-operative stiffness and improve range of motion. The patient has a history of anemia, which was noted during pre-operative blood work. There are no significant cardiac or pulmonary issues, and the patient is not on blood thinners. - Neurological: Reports nerve irritation and numbness. Denies other neurological symptoms. - Hematologic: Reports anemia. Denies bleeding disorders. - Cardiovascular: Denies cardiac issues. - Respiratory: Denies pulmonary issues. Attestation: Documentation on this patient encounter was supported using ambient scribe technology/ voice AI technology. The patient consented to recording for the purpose of documenting the encounter. Provider reviewed content of the generated note prior to signature. 04/03/25: MARCI WONG is a 79 year old M here today for CT Cervical spine review DOS: 03/31/25. Continues wearing C-collar full-time. Left side neck pain and left arm pain continues unchanged. Denies new injuries. Denies injections. Completed PT for balance issues end of 01/2025. He would like to discuss CT results and next steps. He fell on 03-06-25 and reports no pain initially, the arm pain started on March 10. He states the majority of his pain in his arm not his neck. The pain does extend down the left arm into the fingers. He rerpots initially he was not sleeping with the cervical collar on but he has been for the last several weeks. He reports the arm pain is the same with the collar on or off. He is left handed. He is able to use a knife and fork. He can hold a cup. 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 Ortho Exam General General: Yes no acute distress Neurologic: Yes alert and Yes oriented x3 Psychologic: Yes reasonable and appropriate Spine SPINE TESTING CERVICAL THORACIC LUMBAR Musculoskeletal Strength 0=absent - 5=normal Details: Neurological exam of the upper extremities shows grade 4 left triceps, all other muscle groups show 5 power. Normal sensation across all dermatomes. No hyperreflexia. Anh's negative. There is mild midline and left-sided paraspinal tenderness. Romberg's positive. Coding Level of Care Code Off vis,est,level 4 Diagnoses Cervical radiculopathy M54.12 Other closed displaced fracture of seventh cervical vertebra with delayed healing, subsequent encounter S12.690G Encounter type: subsequent encounter Fracture alignment: displaced Fracture healing: with delayed healing Fracture morphology: other fracture Fracture type: closed Time Spent (min) 35 Assessment and Plan Assessment and Plan (1) Cervical radiculopathy: Status: Acute (2) C7 cervical fracture: Status: Acute Qualifiers: Encounter type: subsequent encounter Fracture alignment: displaced Fracture healing: with delayed healing Fracture morphology: other fracture Fracture type: closed Qualified Code(s): S12.690G - Other displaced fracture of seventh cervical vertebra, subsequent encounter for fracture with delayed healing Plan Again reviewed prior x-rays show a straightening of the normal cervical lordosis, a mild retrolisthesis of C4 on C5, multilevel disc height loss throughout the cervical spine. Reviewed cervical MRI from March 10, 2025 which showed a C7 left-sided lamina fracture which extends close to the facet joint. Reviewed cervical MRI from 03/23/2025. This showed mild central canal stenosis from C3-6. C6-7 also shows a severe left foraminal stenosis and mild central canal stenosis. Repeat CT confirms C7 left superior facet fracture with the fracture fragment slightly turned inwards into the foramen causing severe bony foraminal stenosis on the left at C6-7. Some of the radiology reports mistakenly mentions a C6 fracture but it is actually C7 left superior facet fracture. 1. Cervical spondylosis at C6-7 with associated fracture - The plan is to perform an anterior cervical discectomy and fusion to relieve nerve compression and stabilize the spine. - Post-operative care includes wearing a cervical collar for two weeks, followed by gradual weaning and physical therapy to improve range of motion. 2. Anemia - Monitor hemoglobin levels pre- and post-operatively. - No specific treatment required unless symptoms worsen. - Wear the cervical collar snugly for two weeks post-surgery, then gradually reduce use as advised. - Engage in physical therapy as scheduled to improve neck mobility. - Monitor for any signs of increased pain or numbness and report them immediately. - Maintain a healthy diet to support recovery and monitor anemia. - Avoid driving while wearing the cervical collar. I discussed all options including surgical and non surgical options. The non surgical options would be PT, he recently did PT before his fall. The surgical option would be a cervical fusion in the form of C6-7 ACDF with decompression of the left foramen. Patient mentions that his radicular pain has remained the same and slightly worsened over the last 3 weeks despite being in collar immobilization. His new CT also does not show strong healing or evidence of healing at the fracture site with possible further displacement of the facet fracture fragment causing even more pressure into the foraminal area at C6-7 on the left. At this point patient wishes to proceed with surgery which would be a C6-7 ACDF. Discussed this procedure in detail and explained the risks, benefits and alternatives. The risks of surgery include but are not limited to infection, bleeding, injury to nerves and vessels, hematoma formation, dysphagia, dysphonia, recurrent laryngeal nerve injury, Maria Esther syndrome, DVT, pulmonary embolism, pneumonia, atelectasis, cardiopulmonary event, pseudoarthrosis, hardware failure, adjacent segment degeneration, need for further surgery, nerve root injury, spinal cord injury. Answered all questions to the patient?s satisfaction. Patient understands and agrees to proceed with surgery. Consent was signed.Follow up two weeks post operatively or sooner if pain, swelling, numbness or associated symptoms, or concerns develop. All questions answered. Patient in agreement of plan.
--- NOTE | 2025-04-13 07:25 | RAD_ITS ---
PROCEDURE: CERV SPINE 2 OR 3 VIEWS 04/13/2025 REASON FOR EXAM: ERAS, ANTERIOR CERVICAL FUSION C6-7 TECHNIQUE: Procedure Code: RADSPCL Modality: DX Procedure: CERV SPINE 2 OR 3 VIEWS 7 intraoperative C-arm films. 16.6 cm of fluoroscopy, radiation dose of 1.73 mGy COMPARISON: CT from 03/31/2025 FINDINGS: 7 intraoperative studies performed as the patient was undergoing anterior fusion between C6 and C7. No intraoperative complications noted. Alignment between C6 and C7 is anatomic. RAD/Cerv Spine 2 or 3 Views IMPRESSION: No intraoperative complications noted during anterior fusion of C6 and C7. Disclaimer: Reading Location: [id number]
[2025-04-13] MEDS: Lactated Ringers 1,000 ML 1000 ML IV (07:34)
[2025-04-13] MEDS: Cefazolin 1 GM/5 ML Vial 2 GM IV (07:34)
[2025-04-13] MEDS: Lidocaine 1% (5 ml sdv) 5 ML Vial IV (07:42)
[2025-04-13] MEDS: REMIFENTANIL HCL 1 MG VIAL IV (07:44)
[2025-04-13] MEDS: PROPOFOL 68.39 MG IV (07:45)
[2025-04-13] MEDS: TRANEXAMIC ACID 1,000 MG/10 ML ML 1000 MG IV (07:50)
[2025-04-13] MEDS: fentaNYL 100 MCG/2 ML Ampul IV (08:36)
--- NOTE | 2025-04-13 09:37 | OP.PCM_ITS ---
Procedures Musculoskeletal 20xxx-29xxx: Other Procedure See Report Operative Report (Standard) Operative Information Date of Procedure: 04/13/25 Pre-Operative Diagnosis: C7 left superior facet fracture, severe left C7 radiculopathy Post-Operative Diagnosis: Same Surgery/Procedure Performed: C6-7 ACDF, decompression of left C7 nerve root wood room hand: Yes Transit Operator: Pati Roe Tasks completed by recreational assistant: Closing, Removing tissue, Hemostasis: Electrocautery and Retracting Type of Anesthesia: General RN Documented Start/Stop Times: Operation Date: 04/13/25 07:30 Case Time Into Pre-Op 04/13/25 05:32 Out of Pre-Op 04/13/25 07:28 Anesthesia Start 04/13/25 07:34 Into Room 04/13/25 07:34 Procedure Start 04/13/25 08:09 Procedure Start Time: 08:09 Procedure Stop Time: 09:45 Select all DRAINS/GRAFTS/IMPLANTS that apply: Drains Drain details: [place] , Graft Graft details: Structural allograft cortical cancellous strut and Implanted device Implanted device details: Medtronic New [place] Elite plate instrumentation Estimated Blood Loss: 30 cc Specimen collected: No Description of surgery: Preoperative diagnosis: C7 left superior facet fracture, severe left C7 radiculopathy Postoperative diagnosis: Same Name of procedure: C6-7 anterior cervical discectomy and fusion with plate instrumentation, decompression left C7 nerve root - Anterior cervical fusion C6-7, CPT code 34967 - Anterior plate instrumentation C6-7, CPT code 43301/59 -C6-7 structural allograft bone with DBX, CPT code 13806 Attending surgeon: Alan Lainez M.D. Anesthesia: Gen. endotracheal Estimated blood loss: 30 mL Complications: None Instrumentation used: Medtronic New [place] Elite plate, LASR corticocancellous block Indications: The patient is a pleasant 79-year-old gentleman who presented with an injury which was found to be left C7 superior facet fracture on imaging. Thi s was treated initially conservatively, however patient had severe left C7 radiculopathy with triceps weakness. CT showed mildly displaced left C7 superior facet fracture, CT head MRI showed severe left C6-7 foraminal stenosis. Due to the persistent worsening weakness and radiculopathy, the patient requested surgical treatment. All risks and benefits of the procedure were explained to the patient. The risks include but are not limited to infection, bleeding, injury to nerves and vessels, vertebral artery injury, spinal cord injury, paralysis, vocal cord paralysis, injury to esophagus, pseudoarthrosis, need for further procedures, adjacent segment degeneration. Procedure: The patient was identified in the preoperative suite using unique patient identifiers. Skin was marked consent was taken and all questions were answered. The patient was then brought back to the operative room and a timeout was performed. General endotracheal anesthesia was given. Intraoperative neuro monitoring leads were applied. The patient was carefully positioned supine on a regular OR table. A lateral view with a C-arm was done to identify the level and to define the incision. The anterior neck was then prepped and draped in the usual fashion. A final timeout was then performed. A transverse skin incision was taken to the left of midline. Subcutaneous tissue was then divided with Bovie. Platysma was identified and cut along the incision with scissors. The fascial interval between the sternocleidomastoid and the larynx was developed. Omohyoid was identified and retracted. The esophagus with the larynx was retracted medially to reach the prevertebral fascia. Marker x-ray was performed with [place] pin in One of the Bodies and levels were confirmed. Longus coli muscle was elevated on both sides at and above and below C6-7 disc. Self-retaining retractors were then placed. A long handle knife was then used to perform annulotomy at C6-7. Disc fragments were removed with the pituitary. [place] pins were placed in C6 and C7 for disc distraction. Curettes and bur was utilized to remove cartilage from the endplates. Discectomy was performed laterally up to the uncovertebral joints. Posterior osteophytes were thinned down with the bur and adequate decompression in the central and foraminal areas were performed and PLL was thinned out. Left C7 nerve root in the foraminal area was adequately decompressed using Kerrison rongeurs taking down the uncovertebral process. Nerve hook was able to be passed into the foramen with ease confirming adequate decompression. Once the disc space was prepared, trials of various sizes were utilized. Thorough irrigation was given. 6 mm LASR cortical cancellous allograft bone large footprint was then fashioned in such a way that concavities were burred out inferiorly and superiorly and half cc of DBX (demineralized bone matrix) was squeezed into the cancellous portion. The graft was then inserted into the C6-7 disc space. The graft was found to be in good apposition with good pullout strength. A 23 mm Medtronic New [place] Elite plate was then fixed to C6-7 with 17 mm screws. A lateral x-ray was then taken to check the length of the screws. Both AP and lateral x-rays showed good positioning of plate and screws. The locking mechanism over the screw heads was then turned. Thorough irrigation was again given. Hemostasis was achieved. A [place] drain was then inserted. Closure was done with 3-0 Vicryl for the platysma and subcutaneous tissue layers and 4-0 Monocryl for the skin. Closure was done around the drain. Steri-Strips were applied and dressing was done with 4 x 4 gauze and Tegaderm. A cervical collar was then applied. The patient was then woken up from anesthesia extubated and taken to PACU in stable condition. From here, the patient will be transitioned to the floor. Intraoperative neuro monitoring was performed throughout this procedure. Motor evoked potentials were run periodically. All potentials remained at baseline throughout the procedure. I was present for the entire surgery and performed the surgery myself. Sales Receptionist Pati Roe PA-C. My physician certified surgical assistant was a vital part of this case. They were important in appropriate retraction during the case, and protection of soft tissues during the procedure. Their intimate knowledge of the case and my steps aided in safe and expedient completion of the procedure as well as appropriate position of the patient during the surgery. They were also vital in assisting with closure under my direct supervision. Surgical Findings: See operative note Complications Complications: No
--- NOTE | 2025-04-13 09:53 | PCM.POST.ANE ---
Anesthesia: Postop Eval I Current Vital Signs Temperature: 97.4 F Pulse Rate: 80 Blood Pressure: 154/94 Respiratory Rate: 18 Pulse Ox: 95 Assessment Airway patent: Yes Spontaneous unlabored respirations: Yes nausea: No Vomiting: No Anesthesia Complication: No Fluid Hydration Crystalloid volume administer (ml): 1,000 Total IV fluid infused: 1,000 Progress Note Anesthesia document: Postop Eval 1 completed: Yes
--- NOTE | 2025-04-13 10:14 | POSTOPAN2_ITS ---
Anesthesia Postop Eval I Sum Postop Eval Completion status Anesthesia document: Postop Eval 1 completed: Yes Anesthesia Postop Eval I Summary Anesthesia Postop Eval I Summary: Anesthesia Postop Eval I: Assessment Summary Airway patent Yes 04/13/25 09:55 FARM EQUIPMENT MAINTENANCE SUPERVISOR.CSIR Spontaneous unlabored Yes 04/13/25 09:55 FARM EQUIPMENT MAINTENANCE SUPERVISOR.CSIR respirations Mental status nausea No 04/13/25 09:55 FARM EQUIPMENT MAINTENANCE SUPERVISOR.CSIR Vomiting No 04/13/25 09:55 FARM EQUIPMENT MAINTENANCE SUPERVISOR.CSIR Anesthesia Postop Eval I: Fluid Summary Crystalloid volume administer 1,000 04/13/25 09:55 FARM EQUIPMENT MAINTENANCE SUPERVISOR.CSIR (ml) Colloids volume administered ( ml) Blood Product volume administered (ml) Total IV fluid infused 1,000 04/13/25 09:55 FARM EQUIPMENT MAINTENANCE SUPERVISOR.CSIR Anesthesia Postop Eval I: Summary Notes Anesthesia Complication No 04/13/25 09:55 FARM EQUIPMENT MAINTENANCE SUPERVISOR.CSIR Anesthesia Complication Comment: Post-operative progress note Anesthesia: Postop Eval II Evaluation Mental status: Awake Pain Level: 0 nausea: No Vomiting: No
--- NOTE | 2025-04-13 10:14 | PCM.POSTANE2 ---
Anesthesia Postop Eval I Sum Postop Eval Completion status Anesthesia document: Postop Eval 1 completed: Yes Anesthesia Postop Eval I Summary Anesthesia Postop Eval I Summary: Anesthesia Postop Eval I: Assessment Summary Airway patent Yes 04/13/25 09:55 DATA ARCHITECT MANAGER.CSIR Spontaneous unlabored Yes 04/13/25 09:55 DATA ARCHITECT MANAGER.CSIR respirations Mental status nausea No 04/13/25 09:55 DATA ARCHITECT MANAGER.CSIR Vomiting No 04/13/25 09:55 DATA ARCHITECT MANAGER.CSIR Anesthesia Postop Eval I: Fluid Summary Crystalloid volume administer 1,000 04/13/25 09:55 DATA ARCHITECT MANAGER.CSIR (ml) Colloids volume administered ( ml) Blood Product volume administered (ml) Total IV fluid infused 1,000 04/13/25 09:55 DATA ARCHITECT MANAGER.CSIR Anesthesia Postop Eval I: Summary Notes Anesthesia Complication No 04/13/25 09:55 DATA ARCHITECT MANAGER.CSIR Anesthesia Complication Comment: Post-operative progress note Anesthesia: Postop Eval II Evaluation Mental status: Awake Pain Level: 0 nausea: No Vomiting: No
[2025-04-13] MEDS: Cholecalciferol (VIT D3) 25 MCG TABLET (1,000 UNITS) PO (11:28)
[2025-04-13] MEDS: 0.9% Saline Lock 10 ML Syringe IV ×2 (14:24→23:45)
--- NOTE | 2025-04-13 15:12 | PCM.PN.HOSP ---
Subjective Subjective 79-year-old male presenting for an elective C6-7 ACDF for decompression of the L C7 nerve root. No recent changes in medications at baseline. Currently doing well and is on room air. Blood pressure little bit high after surgery but he had not taken his morning medications. Objective Data Objective Data Vital Signs: Vital Signs Temp Pulse Resp BP Pulse Ox O2 Del Method O2 Flow Rate 97.5 F L 70 17 154/88 H 95 Room Air 3 04/13/25 14:30 04/13/25 14:30 04/13/25 14:30 04/13/25 14:30 04/13/25 14:30 04/13/25 14:30 04/13/25 11:08 Oxygen Flow Rate (L/min) 3 Oxygen Delivery Method Room Air Weight: 160 lb Body Mass Index (BMI) 22.9 Intake & Output: Intake and Output for Last 24 Hours 04/12/25 04/13/25 04/14/25 03:59 03:59 03:59 Intake Total 228 / 228 Output Total Balance 218 / 218 Lab / Micro Data 04/09/25 08:24 04/09/25 08:24 Labs: Laboratory Results - last 24 hr 04/13/25 05:59: POC Glucose 94 Micro: Microbiology 04/09/25 08:24 Swab (Method) Nasal Screen MRSA/MSSA - Final Radiography Diagnostic Testing: Radiology Impression Cervical Spine X-Ray 04/13/25 07:25 IMPRESSION: No intraoperative complications noted during anterior fusion of C6 and C7. Disclaimer: Reading Location: [facility] Physical Exam Narrative General: Alert, Oriented x3, Cooperative, No apparent distress HEENT: Atraumatic, PERRLA, EOMI, Normocephalic Oral: Moist Mucosa Neck: Supple, No JVD Lungs: Diminished, Normal air movement, No rhonchi, No wheeze, No rales Cardiovascular: Regular rate, Regular Rhythm, Normal S1, Normal S2, No murmurs Abdomen: Soft, Non Tender, Non-Distended, No Hepato-splenomegaly Extremities: No edema, Capillary Refill Less than 3 Seconds Skin: Dressing CDI Musculoskeletal: No Tenderness to Palpation of Joints or Extremities Neurological: No focal neurological deficits, moves all extremities Psych/Mental Status: Normal Affect, Appropriate Assessment & Plan Assessment/Plan (1) History of fusion of cervical spine: PLAN: Plan 1. Severe left C7 radiculopathy as well as C7 facet fracture status post ACDF of C6-C7 with decompression of the left C7 nerve root ? PT/OT ? Pain management per primary 2. Essential hypertension ? Continue with his home medications ? Will recheck BMP in the morning and monitor his creatinine is he is on valsartan hydrochlorothiazide ? Will monitor and make adjustments as necessary DVT: SCDs Charges/Coding Visit Charges Office Visits / Consults: 40270 OV L3 New 30min
[2025-04-13] MEDS: Cefazolin 2 GM in 0.9% Normal Saline (100mL Bag) 100 ML IV ×2 (15:19→23:47)
[2025-04-13] MEDS: Senna/Docusate Sodium 1 Tablet 2 TABLET PO (23:36)
[2025-04-14 01:17] VITALS: BP 146/92; PULSE 81; RESP 16; TEMP 36.7; O2SAT 93
[2025-04-14 05:54] VITALS: BP 129/82; PULSE 71; RESP 16; TEMP 36.4; O2SAT 95
[2025-04-14] MEDS: 0.9% Saline Lock 10 ML Syringe IV (06:01)
[2025-04-14 06:54] LABS: Hematocrit 37.1 % (40-54); Hemoglobin 13.0 g/dL (13.0-16.5); Immature Granulocytes Count 0.030 X10^3/uL (0.0-0.0); Mean Corp Hgb Conc 35.0 g/dL (32-36); Mean Corpuscular Volume 102.2 fL (80-94); Mean Platelet Vol. 9.6 fl (6.2-12.0); NRBC Flagged by Analyzer 0 % (0-5); Platelet Count 249 K/mm3 (150-450); RBC Distribution Width CV 12.3 % (11.6-14.6); RBC Distribution Width SD 46.4 fl (35.1-43.9); Red Blood Count 3.63 M/mm3 (4.6-6.2); White Blood Count 9.0 K/mm3 (4.4-11.0)
--- NOTE | 2025-04-14 07:00 | RAD_ITS ---
PROCEDURE: CERV SPINE 2 OR 3 VIEWS 04/14/2025 REASON FOR EXAM: S/P CERVICAL FUSION TECHNIQUE: Procedure Code: RADSPCL Modality: DX Procedure: CERV SPINE 2 OR 3 VIEWS COMPARISON: April 13, 2025, March 19, 2025 FINDINGS: Vertebrae: Vertebral body height is preserved. Anterior cervical fusion C6 and C7. Disc space narrowing is mild at C3/4, C4/5. Alignment: Minimal anterolisthesis of C5 on C6 of approximately 3 mm. Straightening of the cervical lordosis is present. Soft tissues: Unremarkable RAD/Cerv Spine 2 or 3 Views IMPRESSION: Straightening of the cervical lordosis. Cervical fusion lower cervical spine. Mild degenerative changes. Grade 1 anterolisthesis above the fusion C5 on C6. Reading Location: [id number]
[2025-04-14 07:13] LABS: Anion Gap 12 (5-15); BUN 19 mg/dL (4-19); BUN/Creat Ratio 17.2 RATIO (10-20); Calcium,Total 9.9 mg/dL (7.6-11.0); Carbon Dioxide 26.0 mmol/L (21.0-32.0); Chloride 98 mmol/L (98-108); Estimated Creatinine Clearance 55.31 ml/min (50-250); Glucose 147 mg/dL (70-99); Potassium 4.5 mmol/L (3.3-5.1)
--- NOTE | 2025-04-14 09:51 | CASEMGMT ---
SHIRLEY CM into pt room, pt sitting up in bed in no distress. Pt states he lives with his who is able to assist him at home as needed. Pt states he has a walker at home. States he has been using the walker initially to the bathroom but now is up indep. Pt denies any homegoing needs at this time.
[2025-04-14] MEDS: Senna/Docusate Sodium 1 Tablet 2 TABLET PO (10:02)
[2025-04-14] MEDS: Cholecalciferol (VIT D3) 25 MCG TABLET (1,000 UNITS) PO (10:02)
[2025-04-14] MEDS: Ensure Surgery 237 ML LIQUID PO (10:02)
[2025-04-14 10:20] VITALS: BP 157/78; PULSE 80; RESP 16; TEMP 36.6; O2SAT 97
--- NOTE | 2025-04-14 10:21 | CASEMGMT ---
GARCIA Met with patient to complete GARCIA form. GARCIA form and its content were verbally explained and patient's questions were answered to the best of my ability.? Patient voiced understanding and signed GARCIA form.? Patient provided a copy of signed GARCIA form and original placed in patient's chart.? Patient had no further questions. Camila Martinez, Discharge Planning Asst
--- NOTE | 2025-04-14 10:36 | PCM.PN.HOSP ---
Subjective Subjective Ambulating in the hallways, pain is controlled Objective Data Objective Data Vital Signs: Vital Signs Temp Pulse Resp BP Pulse Ox O2 Del Method O2 Flow Rate 97.9 F 80 16 157/78 H 97 Room Air 3 04/14/25 10:20 04/14/25 10:20 04/14/25 10:20 04/14/25 10:20 04/14/25 10:20 04/14/25 10:21 04/13/25 11:08 Oxygen Flow Rate (L/min) 3 Oxygen Delivery Method Room Air Weight: 160 lb Body Mass Index (BMI) 22.9 Intake & Output: Intake and Output for Last 24 Hours 04/13/25 04/14/25 04/15/25 03:59 03:59 03:59 Intake Total 1048 / 1048 Output Total Balance 1038 / 1038 Lab / Micro Data 04/14/25 06:39 04/14/25 06:39 Labs: Laboratory Results - last 24 hr 04/14/25 06:39: WBC 9.0, RBC 3.63 L, Hgb 13.0, Hct 37.1 L, MCV 102.2 H, MCH 35.8 H, MCHC 35.0, RDW Std Deviation 46.4 H, RDW Coeff of Skyler 12.3, Plt Count 249, MPV 9.6, Immature Gran % (Auto) 0.300, Neut % (Auto) 85.6 H, Lymph % (Auto) 8.9 L, Whitley % (Auto) 5.1, Eos % (Auto) 0.0, Baso % (Auto) 0.1, Absolute Neuts (auto) 7.7, Absolute Lymphs (auto) 0.80 L, Nucleated RBC % 0, Sodium 136, Potassium 4.5, Chloride 98, Carbon Dioxide 26.0, Anion Gap 12, BUN 19, Creatinine 1.13, Estim Creat Clear Calc 55.31, Est GFR (MDRD) Non-Af 67, BUN/Creatinine Ratio 17.2, Glucose 147 H, Calcium 9.9 Micro: Microbiology 04/09/25 08:24 Swab (Method) Nasal Screen MRSA/MSSA - Final Radiography Diagnostic Testing: Radiology Impression Cervical Spine X-Ray 04/13/25 07:25 IMPRESSION: No intraoperative complications noted during anterior fusion of C6 and C7. Disclaimer: Reading Location: [facility] Cervical Spine X-Ray 04/14/25 07:00 IMPRESSION: Straightening of the cervical lordosis. Cervical fusion lower cervical spine. Mild degenerative changes. Grade 1 anterolisthesis above the fusion C5 on C6. Reading Location: [facility] Physical Exam Narrative General: Alert, Oriented x3, Cooperative, No apparent distress HEENT: Atraumatic, PERRLA, EOMI, Normocephalic Oral: Moist Mucosa Neck: Supple, No JVD Lungs: Diminished, Normal air movement, No rhonchi, No wheeze, No rales Cardiovascular: Regular rate, Regular Rhythm, Normal S1, Normal S2, No murmurs Abdomen: Soft, Non Tender, Non-Distended, No Hepato-splenomegaly Extremities: No edema, Capillary Refill Less than 3 Seconds Skin: Dressing CDI Musculoskeletal: No Tenderness to Palpation of Joints or Extremities Neurological: No focal neurological deficits, moves all extremities Psych/Mental Status: Normal Affect, Appropriate Assessment & Plan Assessment/Plan (1) History of fusion of cervical spine: PLAN: Plan 1. Severe left C7 radiculopathy as well as C7 facet fracture status post ACDF of C6-C7 with decompression of the left C7 nerve root ? PT/OT ? Pain management per primary ? Lab work is unremarkable hemoglobin is stable. He does appear to be medically stable for discharge 2. Essential hypertension ? Continue with his home medications ? Will recheck BMP in the morning and monitor his creatinine is he is on valsartan hydrochlorothiazide ? Will monitor and make adjustments as necessary DVT: SCDs Will sign off Charges/Coding Visit Charges Office Visits / Consults: [id number] OV L3 Est 20min
== END 2025-04-14 12:30 | disposition home or self-care (01) ==
LOC: SDC 10:23 → MS3 10:23
PROVIDERS: Anesthesiology; Student in an Organized Health Care Education/Training Program; Admitting Provider Orthopaedic Surgery Orthopaedic Surgery of the Spine; PCP Family Medicine; Referring Provider Orthopaedic Surgery Orthopaedic Surgery of the Spine; Visit Provider Orthopaedic Surgery Orthopaedic Surgery of the Spine
PROC: (CPT 22551; principal; 2025-04-13 07:00)
DX: M47.22 Other spondylosis with radiculopathy, cervical region (principal); M48.02 Spinal stenosis, cervical region; S12.690G Other displaced fracture of seventh cervical vertebra, subsequent encounter for fracture with delayed healing; I10 Essential (primary) hypertension; Z79.899 Other long term (current) drug therapy; M10.9 Gout, unspecified; X58.XXXD Exposure to other specified factors, subsequent encounter
CPT/HCPCS: 22551; 22845; 20931; 00670; 36415; 72040; 76000; 80048; 82962; 83036; 83735; 85025; 86850; 86900; 86901; 87077; 87081; 93005; 94668; 96365; 96366; 96375; 96376; 99221; 99252; C1713; A4216; G0378; G0463; J2405

== ENCOUNTER → 2025-04-27 | Outpatient (CLI) | payer MEDICARE, OTHER, SELFPAY | END | disposition home or self-care (01) | PROVIDERS: PCP Family Medicine; Referring Provider Physician Assistant Surgical; Visit Provider Physician Assistant Surgical | DX: Z98.1 Arthrodesis status (principal); M17.12 Unilateral primary osteoarthritis, left knee; M21.162 Varus deformity, not elsewhere classified, left knee | CPT/HCPCS: 72040; 73700 ==

== ENCOUNTER → 2025-06-11 | Outpatient (CLI) | payer MEDICARE, OTHER, SELFPAY ==
[2025-06-11 09:38] LABS: Hematocrit 35.1 % (40-54); Hemoglobin 12.4 g/dL (13.0-16.5); Immature Granulocytes Count 0.030 X10^3/uL (0.0-0.0); Mean Corp Hgb Conc 35.3 g/dL (32-36); Mean Corpuscular Volume 101.7 fL (80-94); Mean Platelet Vol. 9.2 fl (6.2-12.0); NRBC Flagged by Analyzer 0 % (0-5); Platelet Count 292 K/mm3 (150-450); RBC Distribution Width CV 13.6 % (11.6-14.6); RBC Distribution Width SD 50.1 fl (35.1-43.9); Red Blood Count 3.45 M/mm3 (4.6-6.2); White Blood Count 7.1 K/mm3 (4.4-11.0)
[2025-06-11 10:05] LABS: Anion Gap 12 (5-15); BUN 25 mg/dL (4-19); BUN/Creat Ratio 23.1 RATIO (10-20); Calcium,Total 10.0 mg/dL (7.6-11.0); Carbon Dioxide 27.8 mmol/L (21.0-32.0); Chloride 99 mmol/L (98-108); Glucose 103 mg/dL (70-99); Potassium 4.8 mmol/L (3.3-5.1)
== END | disposition home or self-care (01) ==
PROVIDERS: PCP Family Medicine; Referring Provider Specialist; Visit Provider Specialist
DX: Z01.818 Encounter for other preprocedural examination (principal); M17.12 Unilateral primary osteoarthritis, left knee; M21.162 Varus deformity, not elsewhere classified, left knee
CPT/HCPCS: 36415; 80048; 85025